=== PATIENT | female | born 1935 | race Caucasian/White ===

== ENCOUNTER → 2016-06-03 | Outpatient (CLI) | payer OTHER ==
[~2016-06-03] MED LIST: ASPI81TA28 PO; CALC-338 PO; CMD3 PO; METO25TA56 PO; MULT-223 PO; POLYSOL4 OP; SIMV-151 PO; TZCSR180 PO
--- NOTE | 2016-06-03 14:36 | MAMMOGRAPHY REPORT ---
BILATERAL DIGITAL SCREENING MAMMOGRAM WITH CAD: 06/03/2016 CLINICAL HISTORY: Routine screening. Patient has no complaints. TECHNIQUE: Current study was also evaluated with a Computer Aided Detection (CAD) system. Bilatera l CC and MLO views were obtained. COMPARISON: Comparison is made to exams dated: 05/27/2015 mammogram, 05/24/2014 mammogram, 05/23/2013 mammogram, 05/18/2012 mammogram, 01/21/2011 mammogram, and 01/20/2010 mammogram - [facility]. BREAST COMPOSITION: The tissue of both breasts is heterogeneously dense, which may obscure small ma sses. FINDINGS: No suspicious masses, calcifications, or areas of architectural distortion are noted in e ither breast. There has been no significant interval change compared to prior exams. Scattered bilat eral benign-appearing calcifications are not significantly changed. Note that the left MLO view is suboptimal as the patient could not be optimally positioned due to her pacemaker. IMPRESSION: ACR BI-RADS CATEGORY 2: BENIGN There is no mammographic evidence of malignancy. A 1 year screening mammogram is recommended. The p atient will receive written notification of the results. Approximately 10% of breast cancers are not detected with mammography. A negative mammographic repor t should not delay biopsy if a clinically suggestive mass is present. Tenisha Meneses M.D. /:06/03/2016 10:44:26 Network Relations Consultant: Ida Dickerson, [facility] letter sent: Normal 1/2 BI-RADS Code: ACR BI-RADS Category 2: Benign
== END | disposition home or self-care (01) ==
LOC: C.MAMM 09:51
PROVIDERS: ATTEND Family Medicine
DX: Z12.31 Encounter for screening mammogram for malignant neoplasm of breast (principal)

== ENCOUNTER → 2016-06-29 | Outpatient (CLI) | payer OTHER ==
[2016-06-29 13:16] LABS: BASO % 0.3 %; BASO ABS # 0.02 K/uL (0-0.2); COMPLETE YES; EOS % 4.9 %; HEMATOCRIT 41.2 % (37-47); IG% 0.3 %; LYMPH ABS # 2.07 K/uL (1.2-3.4); MEAN CELL VOLUME 96.7 fL (80-100); MEAN CORPUSCULAR HEMOGLOBIN 33.1 pg (25-34); MEAN CORPUSCULAR HGB CONC 34.2 g/dl (32-36); MEAN PLATELET VOLUME 11.6 fL (7.4-10.4); MONO % 9.5 %; PLATELET COUNT 167 K/uL (130-400); RED BLOOD COUNT 4.26 M/uL (4.2-5.4); WHITE BLOOD COUNT 7.38 K/uL (4.8-10.8)
[2016-06-29 14:01] LABS: ALT/SGPT 30 U/L (12-78); AST/SGOT 32 U/L (15-37); BLOOD UREA NITROGEN 18 mg/dl (7-18); BUN/CREATININE RATIO 23.6 (10-20); CALCIUM 9.4 mg/dl (8.5-10.1); CARBON DIOXIDE 32 mmol/L (21-32); CHLORIDE 102 mmol/L (98-107); CHOLESTEROL 155 mg/dl (0-200); CREATININE 0.76 mg/dl (0.60-1.20); GLUCOSE 105 mg/dl (70-99); POTASSIUM 4.1 mmol/L (3.5-5.1); SODIUM 140 mmol/L (136-145)
[2016-06-29 14:12] LABS: ALB/GLOB RATIO 1.3 (0.9-2); ALKALINE PHOSPHATASE 96 U/L (45-117); CHOLESTEROL/HDL RATIO 2.5; HDL CHOLESTEROL 61 mg/dl; LDL CHOLESTEROL CALCULATED 72 mg/dl; TRIGLYCERIDES 110 mg/dl (0-150); VERY LOW DENSITY LIPOPROT CALC 22 mg/dl
== END | disposition home or self-care (01) ==
LOC: C.LABMFLN 13:54
PROVIDERS: ATTEND Family Medicine
DX: I48.92 Unspecified atrial flutter (principal); E78.5 Hyperlipidemia, unspecified

== ENCOUNTER → 2017-06-08 | Outpatient (CLI) | payer OTHER ==
--- NOTE | 2017-06-09 15:44 | MAMMOGRAPHY REPORT ---
BILATERAL DIGITAL SCREENING MAMMOGRAM TOMOSYNTHESIS WITH CAD: 06/08/2017 CLINICAL HISTORY: Routine screening. Patient has no complaints. TECHNIQUE: Breast tomosynthesis in addition to standard 2D mammography was performed. Current study was also evaluated with a Computer Aided Detection (CAD) system. COMPARISON: Comparison is made to exams dated: 06/03/2016 mammogram, 05/27/2015 mammogram, 05/24/2014 m ammogram, 05/23/2013 mammogram, 05/18/2012 mammogram, and 01/21/2011 mammogram - [facility]. BREAST COMPOSITION: The tissue of both breasts is heterogeneously dense, which may obscure small mas ses. FINDINGS: There are diffuse bilateral benign coarse calcifications and moderate vascular calcificatio ns in the breasts. Stable asymmetry in the inferior anterior left breast on the MLO view. No new olivares spicious mass, architectural distortion or cluster of microcalcifications is seen. IMPRESSION: ACR BI-RADS CATEGORY 1: NEGATIVE There is no mammographic evidence of malignancy. A 1 year screening mammogram is recommended. The pa tient will receive written notification of the results. Approximately 10% of breast cancers are not detected with mammography. A negative mammographic report should not delay biopsy if a clinically suggestive mass is present. Elvi Chandler M.D. ay/:06/08/2017 16:42:42 Missionary Coordinator: Ida Dickerson, [facility] letter sent: Normal 1/2 BI-RADS Code: ACR BI-RADS Category 1: Negative
== END | disposition home or self-care (01) ==
LOC: C.MAMM 12:01
PROVIDERS: ATTEND Family Medicine
DX: Z12.31 Encounter for screening mammogram for malignant neoplasm of breast (principal)

== ENCOUNTER 2022-10-03 15:17 | Inpatient (IN) ==
[~2022-10-03 15:17] MED LIST changes: -ASPI81TA28 PO; -CALC-338 PO; -CMD3 PO; +LACTATED RINGER'S 1,000 ML IV SCH; -METO25TA56 PO; -MULT-223 PO; -POLYSOL4 OP; +SCOPOLAMINE 1 MG TDSY TD SCH; -SIMV-151 PO; -TZCSR180 PO
[2022-10-03] MEDS ORDERED: ONDANSETRON INJ 2 MG/ML 2 ML VIAL IV STA (15:35)
[2022-10-03] MEDS ORDERED: fentaNYL citrate PF 100 MCG/2 ML VIAL IV PRN (15:35)
[2022-10-03] MEDS ORDERED: SODIUM CHLORIDE 0.9% 500 ML IV STA (15:35)
[2022-10-03] MEDS ORDERED: CHECK SCOPOLAMINE PATCH PLACEMENT SCH (16:00)
[2022-10-03 16:20] LABS: Basophils # (auto) 0.02 K/uL (0.00-0.20); Basophils % (auto) 0.1 %; Eosinophils # (auto) 0.01 K/uL (0.00-0.50); Eosinophils % (auto) 0.1 %; Hemoglobin 12.8 g/dl (12.0-16.0); Immature Granulocytes # (auto) 0.12 K/uL (0.01-0.20); Immature Granulocytes % (auto) 0.8 %; Lymphocytes # (auto) 1.36 K/uL (1.20-3.40); Lymphocytes % (auto) 9.4 %; Mean Corpuscular Hemoglobin 32.6 pg (25.0-34.0); Mean Corpuscular Hgb Conc 34.6 g/dL (32.0-36.0); Mean Corpuscular Volume 94.1 fL (80.0-100.0); Mean Platelet Volume 10.9 fL (9.4-12.4); Monocytes # (auto) 0.89 K/uL (0.11-0.59); Monocytes % (auto) 6.2 %; Neutrophils % (auto) 83.4 %; Platelet Count 173 K/uL (130-400); RDW Coefficient of Variation 12.3 % (11.5-14.5); RDW Standard Deviation 42.6 fL (36.4-46.3); Red Blood Count 3.93 M/uL (4.20-5.40)
--- NOTE | 2022-10-03 16:24 | Emergency Department Note ---
Impression & Plan Closed fracture of left hip, Contusion of elbow, left, Head injury ED Provider Note NAME: KIRT HERRERA AGE: 87 SEX: F : 1935 ARRIVES VIA: Ambulance INFORMANT: Patient, EMS ED PROVIDER(S): Shorty Prabhakar DO CHIEF COMPLAINT: Injury HPI: The patient is an 87-year-old female who presented to the emergency department for an evaluation after a fall. The patient fell striking her left side. She injured her left hip as well as her left elbow. She has no pain in her elbow or her chest. She denies having any headache but did strike her head. She does take blood thinners. She was unable to stand and called 911. She arrived via ambulance. The patient did not receive any pain medication prior to arrival. The patient denies having loss of consciousness or chest pain. ROS: See above HPI for pertinent positives & negatives. A total of 10 systems reviewed and were otherwise negative. PAST MEDICAL HISTORY: See Below PAST SURGICAL HISTORY: See Below FAMILY HISTORY: See Below SOCIAL HISTORY: See Below HOME MEDICATIONS: See Below ALLERGIES: See Below VITALS: See Below PHYSICAL EXAMINATION: GENERAL: The patient is awake and alert. The patient is anxious and uncomfortable y EYES: The conjunctivae are clear. The pupils are round and reactive. EARS, NOSE, MOUTH AND THROAT: The nose is without any evidence of any deformity. NECK: The neck is nontender and supple. RESPIRATORY: Normal respiratory effort is noted there is no evidence of wheezing rhonchi or rales CARDIOVASCULAR: Regular rate and rhythm noted there no murmurs rubs or gallops normal S1 normal S2. GASTROINTESTINAL: The abdomen is soft. Abdomen is nontender. BACK: No midline tenderness or or step-off noted range of motion in flexion extension as well as rotation no signs of muscle spasm noted MUSCULOSKELETAL/EXTREMITIES: There is external rotation as well as shortening of the left hip. Pulses are symmetric in both feet. There is an abrasion to the left elbow but no pain with range of motion testing. SKIN: There is no obvious evidence of any rash. There are no petechiae, pallor or cyanosis noted. NEUROLOGIC: Patient is awake alert and oriented x3 MEDICAL DECISION MAKING: The patient is an 87-year-old female who presented to the emergency department after a fall. The patient fell and struck the left side of her body injuring her left hip and her left elbow. I discussed the patient's laboratory and radiographic studies with her. Ultimately the patient was found to have a left hip fracture. The patient was treated with pain medication emergency department. I discussed patient's laboratory and radiographic studies with the on-call orthopedic physician. I also discussed this case with the on-call [facility] hospitalist. They have agreed to evaluate the patient in the emergency department for further management and disposition. Triage Nursing notes reviewed. Prior medical records reviewed Vital Signs: reviewed and remarkable for no significant abnormalities Differential diagnosis: Fracture, subluxation, dislocation, contusion, ligamentous injury, neurovas cular, compartment syndrome, rhabdomyolysis, as well as other pathologies. ER treatment provided: See below Diagnostics interpreted by me: ECG: EKG was obtained in the emergency department. My interpretation is atrial paced rhythm at [address] segment abnormalities were noted. Some ventricular paced beats were noted. This was compared to a tracing from March 06, 2015. Atrial flutter has been replaced with pacemaker rhythm. Cardiac Monitoring: An order was placed for continuous cardiac monitoring. The monitor shows a rate of 82 bpm with paced rhythm. Laboratory studies: As stated above and show below. Imaging studies: See below. Radiographic imaging was reviewed by myself Consultation(s): I discussed this case with Dr. Rowe who is on-call for orthopedics. I discussed this case with Dr Hwang. Past Med/Surg History Medical History Atrial fibrillation Atrial flutter, paroxysmal Bilateral hearing loss CAD (coronary artery disease) Colon polyps Diverticulosis Hyperlipidemia Mitral valve disorder Need for SBE (subacute bacterial endocarditis) prophylaxis SSS (sick sinus syndrome) Surgical History Cardiac pacemaker in situ H/O colonoscopy H/O mitral valve replacement S/P tonsillectomy S/P tubal ligation Family History Sister Alzheimer disease Father Heart disease Social History Smoking Status: Never smoker Hx Alcohol Use: No Hx Substance Use: No Preferred Language: Yakut marital status: Current Living Situation: Spouse current occupational status: retired Feels Safe at Home: Yes Allergies Allergies Allergy/AdvReac Type Severity Reaction Status Date / Time No Known Allergies Allergy Verified 09/21/22 12:04 Home Meds Home Medications Medication Instructions Recorded Confirmed prochlorperazine maleate 10 mg 10 mg PO Q6H PRN nausea/vomiting 06/09/21 10/03/22 tablet (Compazine) vitamins A,C,A-sxpj-lagwpb 2,148 1 tab PO BID 09/21/22 10/03/22 mcg-113 mg-45 mg-17.4 mg tablet (PreserVision AREDS) Previous Rx's Medication Instructions Recorded aspirin 81 mg tablet,delayed 81 mg PO DAILY #90 tabs 10/31/18 release (Adult Low Dose Aspirin) calcium phosphate 600 mg-vit D3 1 tab PO BID #180 tabs 10/31/18 500 unit-magnesium oxide 50 mg tablet (Posture-D (with magnesium)) multivit with min-folic 1 tab PO DAILY #30 tabs 10/31/18 acid-lutein 400 mcg-250 mcg chewable tablet (Centrum Silver) amoxicillin 500 mg tablet 2,000 mg PO .COMPLEX #4 tabs 11/28/20 diltiazem HCl 360 mg 360 mg PO DAILY #90 caps 11/25/21 capsule,extended release 24 hr simvastatin 20 mg tablet 20 mg PO QPM #90 tabs 02/02/22 apixaban 2.5 mg tablet (Eliquis) 2.5 mg PO BID #180 tabs 02/23/22 metoprolol succinate 25 mg 75 mg PO DAILY #270 tabs 08/07/22 tablet,extended release 24 hr Results & Data (ED) Vital Signs Vital Signs - 24 hr 10/03/22 15:28 10/03/22 15:28 10/03/22 15:31 Temperature 37 C Temperature Source Oral Oral Pulse Rate 85 79 Pulse Rate from SpO2 Sensor Respiratory Rate 15 Blood Pressure 147/82 H Blood Pressure Mean 103 Pulse Oximetry 95 Oxygen Delivery Method Room Air Sepsis Recent Fever Within 48 Hours No Sepsis New/Unexplained Change in Mental Status N/A Sepsis Action Taken by Nursing No Action Required 10/03/22 15:41 10/03/22 15:29 10/03/22 15:30 Temperature Temperature Source Pulse Rate 78 Pulse Rate from SpO2 Sensor 78 Respiratory Rate 24 Blood Pressure 145/66 H Blood Pressure Mean 92 Pulse Oximetry 95 95 Oxygen Delivery Method Room Air Sepsis Recent Fever Within 48 Hours Sepsis New/Unexplained Change in Mental Status Sepsis Action Taken by Nursing 10/03/22 15:30 10/03/22 15:40 10/03/22 15:50 Temperature Temperature Source Pulse Rate 74 70 76 Pulse Rate from SpO2 Sensor 74 67 82 Respiratory Rate 15 17 18 Blood Pressure Blood Pressure Mean Pulse Oximetry 94 95 92 Oxygen Delivery Method Sepsis Recent Fever Within 48 Hours Sepsis New/Unexplained Change in Mental Status Sepsis Action Taken by Nursing 10/03/22 16:00 10/03/22 16:00 10/03/22 16:10 Temperature Temperature Source Pulse Rate 79 Pulse Rate from SpO2 Sensor 80 78 Respiratory Rate 20 Blood Pressure 143/61 H Blood Pressure Mean 88 Pulse Oximetry 94 93 Oxygen Delivery Method Sepsis Recent Fever Within 48 Hours Sepsis New/Unexplained Change in Mental Status Sepsis Action Taken by Nursing 10/03/22 16:57 10/03/22 16:59 10/03/22 16:59 Temperature Temperature Source Pulse Rate 82 80 Pulse Rate from SpO2 Sensor Respiratory Rate 15 15 Blood Pressure 156/68 H Blood Pressure Mean 97 Pulse Oximetry Oxygen Delivery Method Sepsis Recent Fever Within 48 Hours Sepsis New/Unexplained Change in Mental Status Sepsis Action Taken by Nursing 10/03/22 17:00 10/03/22 17:00 10/03/22 17:10 Temperature Temperature Source Pulse Rate 78 78 Pulse Rate from SpO2 Sensor Respiratory Rate 19 17 Blood Pressure 142/65 H Blood Pressure Mean 90 Pulse Oximetry Oxygen Delivery Method Sepsis Recent Fever Within 48 Hours Sepsis New/Unexplained Change in Mental Status Sepsis Action Taken by Nursing 10/03/22 17:20 10/03/22 17:30 10/03/22 17:30 Temperature Temperature Source Pulse Rate 78 82 Pulse Rate from SpO2 Sensor Respiratory Rate 16 21 Blood Pressure 142/71 H Blood Pressure Mean 94 Pulse Oximetry Oxygen Delivery Method Sepsis Recent Fever Within 48 Hours Sepsis New/Unexplained Change in Mental Status Sepsis Action Taken by Nursing 10/03/22 17:40 10/03/22 17:50 10/03/22 18:00 Temperature Temperature Source Pulse Rate 78 78 Pulse Rate from SpO2 Sensor Respiratory Rate 15 15 Blood Pressure 138/72 Blood Pressure Mean 94 Pulse Oximetry Oxygen Delivery Method Sepsis Recent Fever Within 48 Hours Sepsis New/Unexplained Change in Mental Status Sepsis Action Taken by Nursing 10/03/22 18:00 10/03/22 18:10 Temperature Temperature Source Pulse Rate 81 77 Pulse Rate from SpO2 Sensor Respiratory Rate 15 18 Blood Pressure Blood Pressure Mean Pulse Oximetry Oxygen Delivery Method Sepsis Recent Fever Within 48 Hours Sepsis New/Unexplained Change in Mental Status Sepsis Action Taken by [facility] Medications Current Medication List: was personally reviewed by me Laboratory Data Attestation: I reviewed the patient's lab results. 10/03/22 15:50 10/03/22 15:50 Lab Results 10/03/22 10/03/22 10/03/22 Range/Units 15:50 15:50 15:50 WBC 14.40 H (4.8-10.8) K/ul RBC 3.93 L (4.20-5.40) M/uL Hgb 12.8 (12.0-16.0) g/dl Hct 37.0 (37.0-47.0) % MCV 94.1 (80.0-100.0) fL MCH 32.6 (25.0-34.0) pg MCHC 34.6 (32.0-36.0) g/dL RDW Std Deviation 42.6 (36.4-46.3) fL RDW Coeff of Li 12.3 (11.5-14.5) % Plt Count 173 (130-400) K/uL MPV 10.9 (9.4-12.4) fL Immature Gran % (Auto) 0.8 % Neut % (Auto) 83.4 % Lymph % (Auto) 9.4 % [place] % (Auto) 6.2 % Eos % (Auto) 0.1 % Baso % (Auto) 0.1 % Neut # (Auto) 12.00 H (1.40-6.50) K/uL Lymph # (Auto) 1.36 (1.20-3.40) K/uL [place] # (Auto) 0.89 H (0.11-0.59) K/uL Eos # (Auto) 0.01 (0.00-0.50) K/uL Baso # (Auto) 0.02 (0.00-0.20) K/uL Immature Gran # (Auto) 0.12 (0.01-0.20) K/uL PT 11.4 (9.0-12.0) Seconds INR 1.0 (0.9-1.1) APTT 24.8 (21.0-31.0) Seconds PTT Ratio 0.9 Sodium 134 L (136-145) mmol/L Potassium 4.2 (3.5-5.1) mmol/L Chloride 98 (98-107) mmol/L Carbon Dioxide 28 (21-32) mmol/L Anion Gap 8 (3-11) BUN 16 (6-23) mg/dl Creatinine 0.78 (0.6-1.2) mg/dl Est Cr Clr Drug Dosing Not Reportable Est GFR ( Amer) 78.1 ml/min Est GFR (Non-Af Amer) 67.4 ml/min BUN/Creatinine Ratio 20.5 H (10-20) Glucose 116 H (70-99(Fasting)) mg/dl Calcium 9.7 (8.6-10.3) mg/dl Total Bilirubin 0.7 (0.2-1.0) mg/dl AST 38 (13-39) U/L ALT 20 (7-52) U/L Alkaline Phosphatase 106 H (34-104) U/L Troponin I High Sens 11.1 (0-14) pg/ml Total Protein 6.5 (6.0-8.3) gm/dl Albumin 4.1 (3.4-5.0) gm/dl Globulin 2.4 L (2.5-4.0) gm/dl Albumin/Globulin Ratio 1.7 (0.9-2) Lipase 52 (11-82) U/L Administered Medications Lactated Ringer's (Lr) 1,000 mls @ 100 mls/hr IV .Q10H KASH Stop: 11/02/22 20:46 Last Admin: 10/03/22 21:09 Dose: 100 mls/hr Documented By: AMBROCIO Discontinued Medications Fentanyl Citrate (Fentanyl Citrate Pf 100 Mcg/2 Ml Vial) 50 mcg IV Q15M PRN PRN Reason: Pain Stop: 10/17/22 15:34 Last Admin: 10/03/22 17:18 Dose: 50 mcg Documented By: GARY Sodium Chloride (Nss) 500 mls @ 999 mls/hr IV .Q31M STA Stop: 10/03/22 16:05 Last Infusion: 10/03/22 17:55 Dose: 0 mls/hr Documented By: Admin: 10/03/22 16:59 Dose: 999 mls/hr Documented By: GARY Ondansetron HCl (Ondansetron Inj 2 Mg/Ml 2 Ml Vial) 4 mg IV NOW STA Stop: 10/03/22 15:36 Last Admin: 10/03/22 16:59 Dose: Not Given Documented By: GARY Imaging Data Attestation: I personally reviewed and interpreted this imaging study as follows: My Impression: CT of the brain was obtained in the emergency department. My interpretation is no intracranial hemorrhage or mass effect, final report below. 1 view chest x-ray was obtained in the emergency department. My interpretation is no free air or definite infiltrate, final report below. X-ray of the pelvis and left hip was obtained in the emergency department. My interpretation is left hip fracture. Final report below Radiologist's Impression: Cervical Spine CT 10/03/22 15:35 CT OF THE CERVICAL SPINE WITHOUT CONTRAST CLINICAL HISTORY: fall COMPARISON STUDY: No previous studies for comparison. TECHNIQUE: Helical axial images of the cervical spine were obtained without IV contrast. Sagittal and coronal reconstructions were viewed. Automated exposure control was utilized for the study. A dose lowering technique was utilized adhering to the principles of ALARA. FINDINGS: Alignment of the cervical spine is anatomic. Vertebral body heights are maintained. No acute cervical spine fracture or subluxation is present. There is no prevertebral edema. Facet joints are intact. Severe multilevel facet arthrosis and moderate degenerative disc disease is noted. There is biapical scarring within the lungs. IMPRESSION: No acute cervical spine fracture or subluxation. ACT 112: Negative or not required by law. Electronically signed by: Rodrigue Perez M.D. 10/03/2022 5:10 PM Chest X-Ray 10/03/22 15:35 XR chest 1V not portable CLINICAL HISTORY: Chest pain, nonspecific COMPARISON STUDY: Chest radiograph March 05, 2015. FINDINGS: There are median sternotomy wires and a left subclavian pacer. Cardiomegaly is unchanged. There is mild interstitial thickening. This may be chronic. There is no evidence for overt pulmonary edema. There is no pneumothorax or pleural effusion. No consolidation to suggest pneumonia. IMPRESSION: Cardiomegaly. Mild interstitial thickening. This is likely chronic however mild interstitial pulmonary edema could appear similar. ACT 112: Negative or not required by law. Electronically signed by: Rodrigue Perez M.D. 10/03/2022 5:[address] 10/03/22 15:35 CT OF THE HEAD WITHOUT CONTRAST CLINICAL HISTORY: fall COMPARISON STUDY: Head CT May 15, 2009. MRI of the brain June 07, 2009. CT DOSE: 1079.10 mGy.cm TECHNIQUE: Helical axial images of the head were obtained without IV contrast. Automated exposure control was utilized for the study. A dose lowering technique was utilized adhering to the principles of ALARA. FINDINGS: No acute intracranial hemorrhage, midline shift or mass effect is present. The ventricular system is stable. White matter hypodensity suggests small vessel disease. The basal cisterns are patent. No extra-axial collections are present. There are no findings to suggest acute dural sinus thrombosis or acute territorial infarct. No acute calvarial fracture. IMPRESSION: 1. No acute intracranial findings. 2. No acute calvarial fracture. ACT 112: Negative or not required by law. Electronically signed by: Rodrigue Perez M.D. 10/03/2022 5:02 PM Hip/Pelvis X-Ray 10/03/22 15:35 XR hip LT 2V w pelvis CLINICAL HISTORY: fall COMPARISON: CT of the abdomen and pelvis November 21, 2018. FINDINGS: There is an acute displaced left femoral neck fracture. Fracture is displaced approximately 1.2 cm. No additional acute fractures are identified on this exam. There is extensive vascular calcification. Moderate amount of stool within the rectum. Sacroiliac joints and symphysis pubis are intact. IMPRESSION: Acute displaced left femoral neck fracture. ACT 112: Negative or not required by law. Electronically signed by: Rodrigue Perez M.D. 10/03/2022 5:13 PM Discharge Plan Visit Data Chief Complaint: Fall ED Provider: Shorty Prabhakar Discharge Problem: Closed fracture of left hip, Contusion of elbow, left, Head injury Patient Disposition: Admitted As Inpatient Discharge Instructions Interventions: ED Discharge Assessment Last Done: 10/03/22 20:16
[2022-10-03 16:33] LABS: Alanine Aminotransferase 20 U/L (7-52); Albumin Globulin Ratio 1.7 (0.9-2); Albumin Level 4.1 gm/dl (3.4-5.0); Alkaline Phosphatase 106 U/L (34-104); Anion Gap 8 (3-11); Aspartate Aminotransferase 38 U/L (13-39); BUN Creatinine Ratio 20.5 (10-20); Bilirubin,Total 0.7 mg/dl (0.2-1.0); Blood Urea Nitrogen 16 mg/dl (6-23); Calcium 9.7 mg/dl (8.6-10.3); Carbon Dioxide 28 mmol/L (21-32); Chloride 98 mmol/L (98-107); Est GFR (African American) 78.1 ml/min; Est GFR (Non-African American) 67.4 ml/min; Globulin 2.4 gm/dl (2.5-4.0); Glucose 116 mg/dl (70-99(Fasting)); Lipase 52 U/L (11-82); Potassium 4.2 mmol/L (3.5-5.1); Sodium 134 mmol/L (136-145); Total Protein 6.5 gm/dl (6.0-8.3)
[2022-10-03 16:39] LABS: Troponin I High Sensitivity 11.1 pg/ml (0-14)
[2022-10-03 16:48] LABS: Partial Thromboplastin Ratio 0.9; Partial Thromboplastin Time 24.8 Seconds (21.0-31.0); Prothrombin Time 11.4 Seconds (9.0-12.0)
--- NOTE | 2022-10-03 17:03 | CT Scan Report ---
CT OF THE HEAD WITHOUT CONTRAST CLINICAL HISTORY: fall COMPARISON STUDY: Head CT May 15, 2009. MRI of the brain June 07, 2009. CT DOSE: 1079.10 mGy.cm TECHNIQUE: Helical axial images of the head were obtained without IV contrast. Automated exposure con trol was utilized for the study. A dose lowering technique was utilized adhering to the principles o f ALARA. FINDINGS: No acute intracranial hemorrhage, midline shift or mass effect is present. The ventricular system is stable. White matter hypodensity suggests small vessel disease. The basal cisterns are andrew nt. No extra-axial collections are present. There are no findings to suggest acute dural sinus thromb osis or acute territorial infarct. No acute calvarial fracture. IMPRESSION: 1. No acute intracranial findings. 2. No acute calvarial fracture. ACT 112: Negative or not required by law. Electronically signed by: Rodrigue Perez M.D. 10/03/2022 5:02 PM
--- NOTE | 2022-10-03 17:11 | CT Scan Report ---
CT OF THE CERVICAL SPINE WITHOUT CONTRAST CLINICAL HISTORY: fall COMPARISON STUDY: No previous studies for comparison. TECHNIQUE: Helical axial images of the cervical spine were obtained without IV contrast. Sagittal a nd coronal reconstructions were viewed. Automated exposure control was utilized for the study. A do se lowering technique was utilized adhering to the principles of ALARA. FINDINGS: Alignment of the cervical spine is anatomic. Vertebral body heights are maintained. No acut e cervical spine fracture or subluxation is present. There is no prevertebral edema. Facet joints are intact. Severe multilevel facet arthrosis and moderate degenerative disc disease is noted. There is biapical scarring within the lungs. IMPRESSION: No acute cervical spine fracture or subluxation. ACT 112: Negative or not required by law. Electronically signed by: Rodrigue Perez M.D. 10/03/2022 5:10 PM
--- NOTE | 2022-10-03 17:14 | XRay Report ---
XR chest 1V not portable CLINICAL HISTORY: Chest pain, nonspecific COMPARISON STUDY: Chest radiograph March 05, 2015. FINDINGS: There are median sternotomy wires and a left subclavian pacer. Cardiomegaly is unchanged. T here is mild interstitial thickening. This may be chronic. There is no evidence for overt pulmonary e kerri. There is no pneumothorax or pleural effusion. No consolidation to suggest pneumonia. IMPRESSION: Cardiomegaly. Mild interstitial thickening. This is likely chronic however mild interstit ial pulmonary edema could appear similar. ACT 112: Negative or not required by law. Electronically signed by: Rodrigue Perez M.D. 10/03/2022 5:12 PM
--- NOTE | 2022-10-03 17:15 | XRay Report ---
XR hip LT 2V w pelvis CLINICAL HISTORY: fall COMPARISON: CT of the abdomen and pelvis November 21, 2018. FINDINGS: There is an acute displaced left femoral neck fracture. Fracture is displaced approximatel y 1.2 cm. No additional acute fractures are identified on this exam. There is extensive vascular calc ification. Moderate amount of stool within the rectum. Sacroiliac joints and symphysis pubis are inta ct. IMPRESSION: Acute displaced left femoral neck fracture. ACT 112: Negative or not required by law. Electronically signed by: Rodrigue Perez M.D. 10/03/2022 5:13 PM
--- NOTE | 2022-10-03 18:18 | History & Physical Report ---
Date of Service October 03, 2022 Assessment & Plan (1) Closed left hip fracture: Plan: Last took Eliquis 10/03 8 @ 9am. Discussed with Dr Richmond and recommended KCentra prior to surgery if performed tomorrow - order placed Otherwise medically optimized for surgery - no need for cardiac clearance given stability Pain control with acetaminophen 1st line, morphine 2nd line Consult orthopedics (2) Atrial fibrillation: Plan: Hold Eliquis for operation Continue rate control with diltiazem and metoprolol (3) CAD (coronary artery disease): Plan: Continue ASA, Eliquis post operatively Continue metoprolol and simvastatin perioperatively (4) Cardiac pacemaker in situ: (5) Hyperlipidemia: Plan: Continue simvastatin Plan VTE Prophylaxis - Eliquis on hold for operation, restart post operatively when ok by othopedics Diet - regular, NPO after midnight Disposition - admit to med/surg Admission and Anticipated Discharge Date Admission Date: October 04, 2022 History of Present Illness Chief Complaint: Left hip pain, fall Primary Care Provider: DO Tenisha Mitchell Ayan is an 87 year old female who presents to the ER with a fall and subsequent left hip pain. She reports turning around in her kitchen and thinks she turned too fast and lost balance and fell. Hit left leg on cupboard, head and elbow. Having significant left groin pain since the fall and unable to walk. Hip fracture found on XRs in the ER. No known osteoporosis but lso no recent DEXA scans. 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 Doing well since then - no shortness of breath or chest pain on walking. Compliant with medications and just saw her seamer in July. Very active walks up and down stairs without symptoms. No history of heart failure. 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 She last took her Eliquis this morning around 9am. Allergies Allergy/AdvReac Type Severity Reaction Status Date / Time No Known Allergies Allergy Verified 09/21/22 12:04 Home Medications Medication Instructions Recorded Confirmed Type aspirin 81 mg tablet,delayed 81 mg PO DAILY #90 tabs 10/31/18 10/03/22 Rx release (Adult Low Dose Aspirin) calcium phosphate 600 mg-vit D3 1 tab PO BID #180 tabs 10/31/18 10/03/22 Rx 500 unit-magnesium oxide 50 mg tablet (Posture-D (with magnesium)) multivit with min-folic 1 tab PO DAILY #30 tabs 10/31/18 10/03/22 Rx acid-lutein 400 mcg-250 mcg chewable tablet (Centrum Silver) amoxicillin 500 mg tablet 2,000 mg PO .COMPLEX #4 tabs 11/28/20 10/03/22 Rx prochlorperazine maleate 10 mg 10 mg PO Q6H PRN nausea/vomiting 06/09/21 10/03/22 History tablet (Compazine) diltiazem HCl 360 mg 360 mg PO DAILY #90 caps 11/25/21 10/03/22 Rx capsule,extended release 24 hr simvastatin 20 mg tablet 20 mg PO QPM #90 tabs 02/02/22 10/03/22 Rx apixaban 2.5 mg tablet (Eliquis) 2.5 mg PO BID #180 tabs 02/23/22 10/03/22 Rx metoprolol succinate 25 mg 75 mg PO DAILY #270 tabs 08/07/22 10/03/22 Rx tablet,extended release 24 hr vitamins A,C,M-rdph-wjypbf 2,148 1 tab PO BID 09/21/22 10/03/22 History mcg-113 mg-45 mg-17.4 mg tablet (PreserVision AREDS) Past Med/Surg History Medical History Atrial fibrillation Atrial flutter, paroxysmal Bilateral hearing loss CAD (coronary artery disease) Colon polyps Diverticulosis Hyperlipidemia Mitral valve disorder Need for SBE (subacute bacterial endocarditis) prophylaxis SSS (sick sinus syndrome) Surgical History Cardiac pacemaker in situ H/O colonoscopy H/O mitral valve replacement S/P tonsillectomy S/P tubal ligation Family History Sister Alzheimer disease Father Heart disease Social History Smoking Status: Never smoker Second Hand Exposure: No; Do You Dip or Chew Tobacco: No; Tobacco Cessation Education Requested by Patient: No Hx Alcohol Use: No Hx Substance Use: No Preferred Language: German Communication Ability: Effective Photostat Operator Required: No Beliefs That Will Affect Care: None marital status: Current Living Situation: Spouse current occupational status: retired Feels Safe at Home: Yes Safety Concerns: Feels Safe At This Time Assistive Devices: None Review of Systems Review of Systems: All systems reviewed & are unremarkable except as noted in HPI & below Physical Exam Constitutional: WD/WN, vitals as above Eyes: PERRL, conjunctivae normal, anicteric sclerae ENMT: external ear and nose normal, oropharynx normal Neck: trachea midline, no thyromegaly Respiratory: normal respiratory effort, lungs clear to auscultation Cardiovascular: Rate/Rhythm: regular rate and + irregularly irregular Heart Sounds: + murmur (systolic in apex) Extremities: normal capillary refill; no calf tenderness and no pedal edema Gastrointestinal (Abdomen): normal bowel sounds, soft, nontender, no hepatosplenomegaly Musculoskeletal: Shortened and externally rotated left leg, normal sensation and power in left ankle with palpable DP and PT pulses Skin: no rashes, warm and dry Neurologic: moves all extremities and awake; not confused Psychiatric: A+Ox3, euthymic affect Results & Data Results & Data Vital Signs (Past 12 Hours) Vital Signs Temp Pulse Resp BP Pulse Ox O2 Del Method 10/03/22 15:41 95 Room Air 10/03/22 15:31 79 10/03/22 15:28 37 C 85 15 147/82 H 95 Room Air Laboratory Results Abnormal lab results 10/03/22 10/03/22 Range/Units 15:50 15:50 WBC 14.40 H (4.8-10.8) K/ul RBC 3.93 L (4.20-5.40) M/uL Neut # (Auto) 12.00 H (1.40-6.50) K/uL [place] # (Auto) 0.89 H (0.11-0.59) K/uL Sodium 134 L (136-145) mmol/L BUN/Creatinine Ratio 20.5 H (10-20) Glucose 116 H (70-99(Fasting)) mg/dl Alkaline Phosphatase 106 H (34-104) U/L Globulin 2.4 L (2.5-4.0) gm/dl Diagnostic Findings CT OF THE HEAD WITHOUT CONTRAST CLINICAL HISTORY: fall COMPARISON STUDY: Head CT May 15, 2009. MRI of the brain June 07, 2009. CT DOSE: 1079.10 mGy.cm TECHNIQUE: Helical axial images of the head were obtained without IV contrast. Automated exposure control was utilized for the study. A dose lowering technique was utilized adhering to the principles of ALARA. FINDINGS: No acute intracranial hemorrhage, midline shift or mass effect is present. The ventricular system is stable. White matter hypodensity suggests small vessel disease. The basal cisterns are patent. No extra-axial collections are present. There are no findings to suggest acute dural sinus thrombosis or acute territorial infarct. No acute calvarial fracture. IMPRESSION: 1. No acute intracranial findings. 2. No acute calvarial fracture. XR chest 1V not portable CLINICAL HISTORY: Chest pain, nonspecific COMPARISON STUDY: Chest radiograph March 05, 2015. FINDINGS: There are median sternotomy wires and a left subclavian pacer. Cardiomegaly is unchanged. There is mild interstitial thickening. This may be chronic. There is no evidence for overt pulmonary edema. There is no pneumothorax or pleural effusion. No consolidation to suggest pneumonia. IMPRESSION: Cardiomegaly. Mild interstitial thickening. This is likely chronic however mild interstitial pulmonary edema could appear similar. Medications Administered ER Medications Given: Fentanyl 50 mcg IV Normal saline 500ml bolus Ondansetron 4mg IV ECG Rate (beats per minute): 74 Rhythm: other (atrial paced) Findings: + LAFB and + RBBB Comparison ECG Date: from (Mar 06, 2015) Change: the following changes noted (now in paced rhythm from atrial flutter) Code Status & VTE Plan Code Status Full - although she would like to discuss this more with her and might change her mind VTE Prophylaxis Plan VTE Prophylaxis will be ordered: No PG Care Time/CCT Total # of Minutes Spent Total Time Spent with Patient: Total time spent is greater than 50% in coordination of care (as documented) at patient's floor/unit and/or counseling patient: Coding Level of Care Code 89092 INT INP/OBS CARE 2/55MIN Diagnoses Closed left hip fracture S72.002A Atrial fibrillation I48.0 Atrial fibrillation type: paroxysmal CAD (coronary artery disease) I25.10 Associated angina: without angina Coronary Disease-Associated Artery/Lesion type: [place] artery [place] vs. transplanted heart: [place] heart Cardiac pacemaker in situ Z95.0 Hyperlipidemia E78.5 (2) Atrial fibrillation Atrial fibrillation type: paroxysmal Qualified Code(s): I48.0 - Paroxysmal atrial fibrillation (3) CAD (coronary artery disease) Associated angina: without angina Coronary Disease-Associated Artery/Lesion type: [place] artery [place] vs. transplanted heart: [place] heart Qualified Code(s): I25.10 - Atherosclerotic heart disease of [place] coronary artery without angina pectoris
[2022-10-03] MEDS ORDERED: MoRPHine SULFATE 2 MG/ML CARP IV PRN ×2 (20:47→20:49)
[2022-10-03] MEDS ORDERED: ONDANSETRON INJ 2 MG/ML 2 ML VIAL IV PRN (20:47)
[2022-10-03] MEDS ORDERED: bisacodyL 10 MG SUPP PR PRN (20:47)
[2022-10-03] MEDS ORDERED: NALOXONE HCL 0.4 MG/1 ML VIAL/CARP IV PRN (20:47)
[2022-10-03] MEDS ORDERED: MAGNESIUM HYDROXIDE SUSP 30 ML UDC PO PRN (20:47)
[2022-10-03] MEDS: LACTATED RINGER'S 1,000 ML IV SCH (21:09)
[2022-10-03] MEDS: SIMVASTATIN 20 MG TAB PO SCH (21:52)
[2022-10-03] MEDS: ACETAMINOPHEN 325 MG TAB PO PRN (23:09)
[2022-10-04 00:33] LABS: Appearance Urine Cloudy (Clear); Bacteria Urine Automated Negative (Negative); Bilirubin Urine Negative (Negative); Blood Urine Negative (Negative); Color Urine Yellow; Epithelial Cell Urine Auto 0-5 /lpf (0-5); Glucose Urine UA Negative (Negative); Ketones Urine 2+ (Negative); Leukocyte Esterase Urine Negative (Negative); Nitrite Urine Negative (Negative); RBC Urine Automated 0-4 /hpf (0-4); Specific Gravity Urine 1.014 (1.000-1.030); Urobilinogen Urine Negative (Negative); WBC Urine Automated 0 /hpf (0-5); pH Urine 7.5 (4.5-7.5)
[2022-10-04 00:38] LABS: Protein Urine Trace (Negative)
[2022-10-04] MEDS ORDERED: SCOPOLAMINE 1 MG TDSY TD SCH (06:00)
[2022-10-04] MEDS ORDERED: TRANEXAMIC ACID 1,000 MG in 0.9 % SODIUM CHLORIDE 100 ML IR SCH (06:00)
[2022-10-04] MEDS ORDERED: ceFAZolin 2000MG 2,000 MG/15 ML SYR IV SCH (06:00)
[2022-10-04] MEDS ORDERED: KCENTRA (500unit vial) 2000 units IVP IV SCH (06:00)
[2022-10-04] MEDS ORDERED: LACTATED RINGER'S 1,000 ML IV SCH (06:00)
[2022-10-04] MEDS ORDERED: ROPIVACAINE 0.5% HCL/PF 150 MG, BUPIVACAINE 0.75% MPF 20 ML, EPINEPHrine 0.15 MG, Ketor... INFIL SCH (06:00)
[2022-10-04] MEDS ORDERED: TRANEXAMIC ACID / 0.7% NACL 1,000 MG/100 ML BAG IV SCH ×2 (06:00→19:15)
[2022-10-04 07:19] LABS: Basophils # (auto) 0.03 K/uL (0.00-0.20); Basophils % (auto) 0.3 %; Eosinophils # (auto) 0.18 K/uL (0.00-0.50); Eosinophils % (auto) 1.9 %; Hematocrit (blood only) 34.2 % (37.0-47.0); Hemoglobin 11.9 g/dl (12.0-16.0); Immature Granulocytes # (auto) 0.05 K/uL (0.01-0.20); Immature Granulocytes % (auto) 0.5 %; Lymphocytes # (auto) 1.12 K/uL (1.20-3.40); Mean Corpuscular Hemoglobin 32.9 pg (25.0-34.0); Mean Corpuscular Hgb Conc 34.8 g/dL (32.0-36.0); Mean Corpuscular Volume 94.5 fL (80.0-100.0); Mean Platelet Volume 10.9 fL (9.4-12.4); Monocytes # (auto) 0.93 K/uL (0.11-0.59); Neutrophils # (auto) 6.99 K/uL (1.40-6.50); Neutrophils % (auto) 75.3 %; Platelet Count 146 K/uL (130-400); RDW Coefficient of Variation 12.3 % (11.5-14.5); RDW Standard Deviation 42.5 fL (36.4-46.3); Red Blood Count 3.62 M/uL (4.20-5.40)
[2022-10-04 07:21] LABS: Fibrinogen 299 mg/dl (184-400); INR 1.1 (0.9-1.1); Partial Thromboplastin Ratio 1.1; Prothrombin Time 11.9 Seconds (9.0-12.0)
[2022-10-04 07:32] LABS: Calcium 8.4 mg/dl (8.6-10.3); Creatinine Clr Calc Pharmacy 53.5 ml/min; Est GFR (African American) 94.2 ml/min; Est GFR (Non-African American) 81.3 ml/min; Potassium 3.4 mmol/L (3.5-5.1)
[2022-10-04] MEDS ORDERED: ONDANSETRON INJ 2 MG/ML 2 ML VIAL IV PRN ×2 (07:43→13:14)
[2022-10-04] MEDS ORDERED: POTASSIUM CHLORIDE CRTAB 20 MEQ TABCR PO STA (08:07)
--- NOTE | 2022-10-04 08:09 | Hospitalist Progress Note ---
Date of Service October 04, 2022 Assessment & Plan (1) Closed left hip fracture: Plan: Fall at home Imaging w/ acute displaced left femoral neck fracture Orthopedics consulted NPO for surgery this morning IVF rate decreased to 70cc/hr given weight to prevent volume overload. K/mag replacement given her underlying afib/flutter to ensure stable. Monitor post-op Eliquis on hold (last dose AM 10/03 @ 9am) discussed w/ Dr Richmond on admission and Kcentra recommended prior to surgery (order on chart) Cohen Pain control/antiemetics prn PT/OT consults following surgery SCDs in place at present Monitor labs on repeat (2) Atrial fibrillation: Plan: Hold Eliquis for operation, Kcentra as above Continue rate control with diltiazem and metoprolol Keep K/mag replete, see above (3) CAD (coronary artery disease): Plan: Continue ASA, Eliquis post operatively Continue metoprolol and simvastatin perioperatively (4) Cardiac pacemaker in situ: (5) Hyperlipidemia: Plan: Continue simvastatin Plan VTE Prophylaxis - Eliquis on hold for operation, restart post operatively when ok by othopedics NPO for OR today with Dr Dumont Admission and Anticipated Discharge Date Admission Date: October 03, 2022 Supervising Physician Co-Signing Physician Notes The patient was not seen by me. The chart was reviewed. Case discussed with MIKIE Chandler. Agree with assessment and plan Subjective Eval this morning, awaiting surgery, not having much pain if she doesn't move. Denies CP/SOB, reports never has issues with this. Discussed surgery for today, therapy evaluations post-operatively and we will continue to monitor her course. Questions/concerns addressed at present. Physical Exam Physical Exam: General: WN/WD female resting in bed, NAD HEENT: head normocephalic, atraumatic, mmm, trachea midline Resp: CTA, diminished in the bases, no w/c, on room air CV: irregularly irregular, systolic murmur (apex), no pitting edema/calf tenderness GI: +BS, soft/NT : cohen draining clear yellow urine MSK/Neuro: LEFT leg shortened/externally rotated, NVI and pulses palpable Psych: AOx3, pleasant and cooperative Results & Data Results & Data Vital Signs (Past 12 Hours) Vital Signs Temp Pulse Pulse Resp BP BP Pulse Ox 10/04/22 07:12 36.8 C 76 18 113/78 92 10/03/22 22:01 36.8 C 81 18 128/72 96 10/03/22 20:16 82 18 132/72 95 O2 Del Method 10/04/22 07:12 Room Air 10/03/22 22:01 Room Air 10/03/22 20:16 Room Air Laboratory Results 10/04/22 10/04/22 10/04/22 Range/Units Unknown 06:30 06:30 WBC (4.8-10.8) K/ul RBC (4.20-5.40) M/uL Hgb (12.0-16.0) g/dl Hct (37.0-47.0) % MCV (80.0-100.0) fL MCH (25.0-34.0) pg MCHC (32.0-36.0) g/dL RDW Std Deviation (36.4-46.3) fL RDW Coeff of Li (11.5-14.5) % Plt Count (130-400) K/uL MPV (9.4-12.4) fL Immature Gran % (Auto) % Neut % (Auto) % Lymph % (Auto) % [place] % (Auto) % Eos % (Auto) % Baso % (Auto) % Neut # (Auto) (1.40-6.50) K/uL Lymph # (Auto) (1.20-3.40) K/uL [place] # (Auto) (0.11-0.59) K/uL Eos # (Auto) (0.00-0.50) K/uL Baso # (Auto) (0.00-0.20) K/uL Immature Gran # (Auto) (0.01-0.20) K/uL PT (9.0-12.0) Seconds INR (0.9-1.1) APTT (21.0-31.0) Seconds PTT Ratio Fibrinogen (184-400) mg/dl Heparin Anti-Xa, LM Wt (< 0.10) IU/ML Sodium 134 L (136-145) mmol/L Potassium 3.4 L (3.5-5.1) mmol/L Chloride 100 (98-107) mmol/L Carbon Dioxide 28 (21-32) mmol/L Anion Gap 6 (3-11) BUN 13 (6-23) mg/dl Creatinine 0.59 L (0.6-1.2) mg/dl Est Cr Clr Drug Dosing 53.5 Est GFR ( Amer) 94.2 ml/min Est GFR (Non-Af Amer) 81.3 ml/min BUN/Creatinine Ratio 22.0 H (10-20) Glucose 104 H (70-99(Fasting)) mg/dl Calcium 8.4 L (8.6-10.3) mg/dl Magnesium 1.7 (1.7-2.4) mg/dl Total Bilirubin (0.2-1.0) mg/dl AST (13-39) U/L ALT (7-52) U/L Alkaline Phosphatase (34-104) U/L Troponin I High Sens (0-14) pg/ml Total Protein (6.0-8.3) gm/dl Albumin (3.4-5.0) gm/dl Globulin (2.5-4.0) gm/dl Albumin/Globulin Ratio (0.9-2) Lipase (11-82) U/L Urine Color Yellow Urine Appearance Cloudy A (Clear) Urine pH 7.5 (4.5-7.5) Ur Specific [place] 1.014 (1.000-1.030) Urine Protein Trace H (Negative) Urine Glucose (UA) Negative (Negative) Urine Ketones 2+ H (Negative) Urine Blood Negative (Negative) Urine Nitrite Negative (Negative) Urine Bilirubin Negative (Negative) Urine Urobilinogen Negative (Negative) Ur Leukocyte Esterase Negative (Negative) Urine WBC (Auto) 0 (0-5) /hpf Urine RBC (Auto) 0-4 (0-4) /hpf U Hyaline Cast (Auto) 1-5 (0-5) /lpf U Epithel Cells (Auto) 0-5 (0-5) /lpf Urine Bacteria (Auto) Negative (Negative) Blood Type Antibody Screen 10/04/22 10/04/22 10/03/22 Range/Units 06:30 06:30 20:56 WBC 9.30 (4.8-10.8) K/ul RBC 3.62 L (4.20-5.40) M/uL Hgb 11.9 L (12.0-16.0) g/dl Hct 34.2 L (37.0-47.0) % MCV 94.5 (80.0-100.0) fL MCH 32.9 (25.0-34.0) pg MCHC 34.8 (32.0-36.0) g/dL RDW Std Deviation 42.5 (36.4-46.3) fL RDW Coeff of Li 12.3 (11.5-14.5) % Plt Count 146 (130-400) K/uL MPV 10.9 (9.4-12.4) fL Immature Gran % (Auto) 0.5 % Neut % (Auto) 75.3 % Lymph % (Auto) 12.0 % [place] % (Auto) 10.0 % Eos % (Auto) 1.9 % Baso % (Auto) 0.3 % Neut # (Auto) 6.99 H (1.40-6.50) K/uL Lymph # (Auto) 1.12 L (1.20-3.40) K/uL [place] # (Auto) 0.93 H (0.11-0.59) K/uL Eos # (Auto) 0.18 (0.00-0.50) K/uL Baso # (Auto) 0.03 (0.00-0.20) K/uL Immature Gran # (Auto) 0.05 (0.01-0.20) K/uL PT 11.9 (9.0-12.0) Seconds INR 1.1 (0.9-1.1) APTT 30.0 (21.0-31.0) Seconds PTT Ratio 1.1 Fibrinogen 299 (184-400) mg/dl Heparin Anti-Xa, LM Wt 0.49 (< 0.10) IU/ML Sodium (136-145) mmol/L Potassium (3.5-5.1) mmol/L Chloride (98-107) mmol/L Carbon Dioxide (21-32) mmol/L Anion Gap (3-11) BUN (6-23) mg/dl Creatinine (0.6-1.2) mg/dl Est Cr Clr Drug Dosing Est GFR ( Amer) ml/min Est GFR (Non-Af Amer) ml/min BUN/Creatinine Ratio (10-20) Glucose (70-99(Fasting)) mg/dl Calcium (8.6-10.3) mg/dl Magnesium (1.7-2.4) mg/dl Total Bilirubin (0.2-1.0) mg/dl AST (13-39) U/L ALT (7-52) U/L Alkaline Phosphatase (34-104) U/L Troponin I High Sens (0-14) pg/ml Total Protein (6.0-8.3) gm/dl Albumin (3.4-5.0) gm/dl Globulin (2.5-4.0) gm/dl Albumin/Globulin Ratio (0.9-2) Lipase (11-82) U/L Urine Color Urine Appearance (Clear) Urine pH (4.5-7.5) Ur Specific [place] (1.000-1.030) Urine Protein (Negative) Urine Glucose (UA) (Negative) Urine Ketones (Negative) Urine Blood (Negative) Urine Nitrite (Negative) Urine Bilirubin (Negative) Urine Urobilinogen (Negative) Ur Leukocyte Esterase (Negative) Urine WBC (Auto) (0-5) /hpf Urine RBC (Auto) (0-4) /hpf U Hyaline Cast (Auto) (0-5) /lpf U Epithel Cells (Auto) (0-5) /lpf Urine Bacteria (Auto) (Negative) Blood Type O Negative Antibody Screen NEGATIVE 10/03/22 10/03/22 10/03/22 Range/Units 15:50 15:50 15:50 WBC 14.40 H (4.8-10.8) K/ul RBC 3.93 L (4.20-5.40) M/uL Hgb 12.8 (12.0-16.0) g/dl Hct 37.0 (37.0-47.0) % MCV 94.1 (80.0-100.0) fL MCH 32.6 (25.0-34.0) pg MCHC 34.6 (32.0-36.0) g/dL RDW Std Deviation 42.6 (36.4-46.3) fL RDW Coeff of Li 12.3 (11.5-14.5) % Plt Count 173 (130-400) K/uL MPV 10.9 (9.4-12.4) fL Immature Gran % (Auto) 0.8 % Neut % (Auto) 83.4 % Lymph % (Auto) 9.4 % [place] % (Auto) 6.2 % Eos % (Auto) 0.1 % Baso % (Auto) 0.1 % Neut # (Auto) 12.00 H (1.40-6.50) K/uL Lymph # (Auto) 1.36 (1.20-3.40) K/uL [place] # (Auto) 0.89 H (0.11-0.59) K/uL Eos # (Auto) 0.01 (0.00-0.50) K/uL Baso # (Auto) 0.02 (0.00-0.20) K/uL Immature Gran # (Auto) 0.12 (0.01-0.20) K/uL PT 11.4 (9.0-12.0) Seconds INR 1.0 (0.9-1.1) APTT 24.8 (21.0-31.0) Seconds PTT Ratio 0.9 Fibrinogen (184-400) mg/dl Heparin Anti-Xa, LM Wt (< 0.10) IU/ML Sodium 134 L (136-145) mmol/L Potassium 4.2 (3.5-5.1) mmol/L Chloride 98 (98-107) mmol/L Carbon Dioxide 28 (21-32) mmol/L Anion Gap 8 (3-11) BUN 16 (6-23) mg/dl Creatinine 0.78 (0.6-1.2) mg/dl Est Cr Clr Drug Dosing Not Reportable Est GFR ( Amer) 78.1 ml/min Est GFR (Non-Af Amer) 67.4 ml/min BUN/Creatinine Ratio 20.5 H (10-20) Glucose 116 H (70-99(Fasting)) mg/dl Calcium 9.7 (8.6-10.3) mg/dl Magnesium (1.7-2.4) mg/dl Total Bilirubin 0.7 (0.2-1.0) mg/dl AST 38 (13-39) U/L ALT 20 (7-52) U/L Alkaline Phosphatase 106 H (34-104) U/L Troponin I High Sens 11.1 (0-14) pg/ml Total Protein 6.5 (6.0-8.3) gm/dl Albumin 4.1 (3.4-5.0) gm/dl Globulin 2.4 L (2.5-4.0) gm/dl Albumin/Globulin Ratio 1.7 (0.9-2) Lipase 52 (11-82) U/L Urine Color Urine Appearance (Clear) Urine pH (4.5-7.5) Ur Specific [place] (1.000-1.030) Urine Protein (Negative) Urine Glucose (UA) (Negative) Urine Ketones (Negative) Urine Blood (Negative) Urine Nitrite (Negative) Urine Bilirubin (Negative) Urine Urobilinogen (Negative) Ur Leukocyte Esterase (Negative) Urine WBC (Auto) (0-5) /hpf Urine RBC (Auto) (0-4) /hpf U Hyaline Cast (Auto) (0-5) /lpf U Epithel Cells (Auto) (0-5) /lpf Urine Bacteria (Auto) (Negative) Blood Type Antibody Screen Diagnostic Findings Cervical Spine CT 10/03/22 15:35 CT OF THE CERVICAL SPINE WITHOUT CONTRAST CLINICAL HISTORY: fall COMPARISON STUDY: No previous studies for comparison. TECHNIQUE: Helical axial images of the cervical spine were obtained without IV contrast. Sagittal and coronal reconstructions were viewed. Automated exposure control was utilized for the study. A dose lowering technique was utilized adhering to the principles of ALARA. FINDINGS: Alignment of the cervical spine is anatomic. Vertebral body heights are maintained. No acute cervical spine fracture or subluxation is present. There is no prevertebral edema. Facet joints are intact. Severe multilevel facet arthrosis and moderate degenerative disc disease is noted. There is biapical scarring within the lungs. IMPRESSION: No acute cervical spine fracture or subluxation. ACT 112: Negative or not required by law. Electronically signed by: Rodrigue Perez M.D. 10/03/2022 5:10 PM Chest X-Ray 10/03/22 15:35 XR chest 1V not portable CLINICAL HISTORY: Chest pain, nonspecific COMPARISON STUDY: Chest radiograph March 05, 2015. FINDINGS: There are median sternotomy wires and a left subclavian pacer. Cardiomegaly is unchanged. There is mild interstitial thickening. This may be chronic. There is no evidence for overt pulmonary edema. There is no pneumothorax or pleural effusion. No consolidation to suggest pneumonia. IMPRESSION: Cardiomegaly. Mild interstitial thickening. This is likely chronic however mild interstitial pulmonary edema could appear similar. ACT 112: Negative or not required by law. Electronically signed by: Rodrigue Perez M.D. 10/03/2022 5:[address] 10/03/22 15:35 CT OF THE HEAD WITHOUT CONTRAST CLINICAL HISTORY: fall COMPARISON STUDY: Head CT May 15, 2009. MRI of the brain June 07, 2009. CT DOSE: 1079.10 mGy.cm TECHNIQUE: Helical axial images of the head were obtained without IV contrast. Automated exposure control was utilized for the study. A dose lowering technique was utilized adhering to the principles of ALARA. FINDINGS: No acute intracranial hemorrhage, midline shift or mass effect is present. The ventricular system is stable. White matter hypodensity suggests small vessel disease. The basal cisterns are patent. No extra-axial collections are present. There are no findings to suggest acute dural sinus thrombosis or acute territorial infarct. No acute calvarial fracture. IMPRESSION: 1. No acute intracranial findings. 2. No acute calvarial fracture. ACT 112: Negative or not required by law. Electronically signed by: Rodrigue Perez M.D. 10/03/2022 5:02 PM Hip/Pelvis X-Ray 10/03/22 15:35 XR hip LT 2V w pelvis CLINICAL HISTORY: fall COMPARISON: CT of the abdomen and pelvis November 21, 2018. FINDINGS: There is an acute displaced left femoral neck fracture. Fracture is displaced approximately 1.2 cm. No additional acute fractures are identified on this exam. There is extensive vascular calcification. Moderate amount of stool within the rectum. Sacroiliac joints and symphysis pubis are intact. IMPRESSION: Acute displaced left femoral neck fracture. ACT 112: Negative or not required by law. Electronically signed by: Rodrigue Perez M.D. 10/03/2022 5:13 PM PG Care Time/CCT Total # of Minutes Spent Total Time Spent with Patient: Total time spent is greater than 50% in coordination of care (as documented) at patient's floor/unit and/or counseling patient: Coding Level of Care Code 06208 SUB INP/OBS CARE 3/50MIN Diagnoses Closed left hip fracture S72.002A Atrial fibrillation I48.0 Atrial fibrillation type: paroxysmal CAD (coronary artery disease) I25.10 Associated angina: without angina Coronary Disease-Associated Artery/Lesion type: [place] artery [place] vs. transplanted heart: [place] heart Cardiac pacemaker in situ Z95.0 Hyperlipidemia E78.5 (2) Atrial fibrillation Atrial fibrillation type: paroxysmal Qualified Code(s): I48.0 - Paroxysmal atrial fibrillation (3) CAD (coronary artery disease) Associated angina: without angina Coronary Disease-Associated Artery/Lesion type: [place] artery [place] vs. transplanted heart: [place] heart Qualified Code(s): I25.10 - Atherosclerotic heart disease of [place] coronary artery without angina pectoris
[2022-10-04] MEDS: METOPROLOL SUCC 25MG EXT REL TAB PO SCH (08:26)
[2022-10-04] MEDS: dilTIAZem HCL 180 MG CAPCR PO SCH (08:26)
[2022-10-04] MEDS: LACTATED RINGER'S 1,000 ML IV SCH ×2 (08:28→23:29)
[2022-10-04] MEDS: ACETAMINOPHEN 325 MG TAB PO PRN (08:30)
--- NOTE | 2022-10-04 08:50 | Orthopedic Progress Note ---
Date of Service October 04, 2022 Assessment & Plan (1) Closed fracture of left hip: Plan: Proceed to the operating room this morning. Patient will be readmitted to internal medicine after surgery. She understands the increased risk of bleeding and transfusion because of being on Eliquis. However she also understands the advantages of having her surgery so she can mobilize and get out of bed. Surgical site has been marked and informed consent was already signed. Admission and Anticipated Discharge Date Admission Date: October 03, 2022 Subjective Patient seen and examined on a.m. rounds. She did well overnight. Pain is well controlled so long as her leg is immobilized. Pain continues to be localized to her left hip. Denies numbness or tingling down her leg. Physical Exam Physical Exam: Resting comfortably in bed in no acute distress. She is alert and appropriate this morning, answers all questions and is conversant. Left leg reveals it to be shortened and externally rotated. Neurovascular intact. Results & Data Vital Signs (Past 12 Hours) Vital Signs Temp Pulse Resp BP Pulse Ox O2 Del Method 10/04/22 07:12 36.8 C 76 18 113/78 92 Room Air 10/03/22 22:01 36.8 C 81 18 128/72 96 Room Air (1) Closed fracture of left hip Encounter type: initial encounter Qualified Code(s): S72.002A - Fracture of unspecified part of neck of left femur, initial encounter for closed fracture
[2022-10-04] MEDS ORDERED: PROTHROMBIN COMP CONC- KCENTRA 2,000 UNITS in SYRINGE 0 ML IV ONE (09:00)
[2022-10-04] MEDS ORDERED: SODIUM CHLORIDE 0.9% 250 ML IV PRN (09:47)
[2022-10-04] MEDS ORDERED: MAGNESIUM SULFATE / D5W 1 GM/100 ML BAG IV ONE (09:53)
[2022-10-04] MEDS ORDERED: ORTHO JOINT ANESTHETIC ONE (10:18)
--- NOTE | 2022-10-04 11:02 | Anesthesiology Consultation ---
Date of Service October 04, 2022 History Surgery Operation Date: 10/04/22 12:00 Proposed Procedures p Total Hip Arthroplasty Cemented(Left) - Kevin Dumont MD Height/Weight Height: 5 ft 3 in Weight: 54.4 kg Allergies Allergy/AdvReac Type Severity Reaction Status Date / Time No Known Allergies Allergy Verified 09/21/22 12:04 Medications Home Medications Medication Instructions Recorded Confirmed Last Taken aspirin 81 mg tablet,delayed 81 mg PO DAILY #90 tabs 10/31/18 10/03/22 Unknown release (Adult Low Dose Aspirin) calcium phosphate 600 mg-vit D3 1 tab PO BID #180 tabs 10/31/18 10/03/22 Unknown 500 unit-magnesium oxide 50 mg tablet (Posture-D (with magnesium)) multivit with min-folic 1 tab PO DAILY #30 tabs 10/31/18 10/03/22 Unknown acid-lutein 400 mcg-250 mcg chewable tablet (Centrum Silver) amoxicillin 500 mg tablet 2,000 mg PO .COMPLEX #4 tabs 11/28/20 10/03/22 Unknown prochlorperazine maleate 10 mg 10 mg PO Q6H PRN nausea/vomiting 06/09/21 10/03/22 Unknown tablet (Compazine) diltiazem HCl 360 mg 360 mg PO DAILY #90 caps 11/25/21 10/03/22 Unknown capsule,extended release 24 hr simvastatin 20 mg tablet 20 mg PO QPM #90 tabs 02/02/22 10/03/22 Unknown apixaban 2.5 mg tablet (Eliquis) 2.5 mg PO BID #180 tabs 02/23/22 10/03/22 Unknown metoprolol succinate 25 mg 75 mg PO DAILY #270 tabs 08/07/22 10/03/22 Unknown tablet,extended release 24 hr vitamins A,C,K-ezte-ecoknn 2,148 1 tab PO BID 09/21/22 10/03/22 Unknown mcg-113 mg-45 mg-17.4 mg tablet (PreserVision AREDS) Active Medications Generic Name Dose Route Start Last Admin Trade Name Freq PRN Reason Stop Dose Admin Acetaminophen 650 mg 10/03/22 22:17 10/04/22 08:30 Acetaminophen 325 Mg Tab PO 11/02/22 22:16 650 mg Q4H PRN Administration pain or fever Diltiazem HCl 360 mg 10/04/22 09:00 10/04/22 08:26 Diltiazem Hcl 180 Mg Capcr PO 11/03/22 08:59 360 mg DAILY KASH Administration Lactated Ringer's 1,000 mls @ 70 mls/hr 10/03/22 20:47 10/04/22 08:28 Lr IV 11/02/22 20:46 70 mls/hr .[id number] KASH Administration Magnesium Sulfate/Dextrose 1 gm in 100 mls @ 50 mls/hr 10/04/22 09:53 10/04/22 10:22 Magnesium Sulfate / D5w IV 10/04/22 11:52 50 mls/hr ONE ONE Administration Metoprolol Succinate 75 mg 10/04/22 09:00 10/04/22 08:26 Metoprolol Succ 25mg Ext Rel Tab PO 11/03/22 08:59 75 mg DAILY KASH Administration Simvastatin 20 mg 10/03/22 21:00 10/03/22 21:52 Simvastatin 20 Mg Tab PO 11/02/22 20:59 20 mg QPM KASH Administration NPO Date Last Intake of Fluids: 10/04/22 Time Last Intake of Fluids: 06:00 Last Intake of Fluids Comment: sip of water with meds Date Last Intake of Solids: 10/03/22 Time Last Intake of Solids: 20:00 Past Medical History Medical History Atrial fibrillation Atrial flutter, paroxysmal Bilateral hearing loss CAD (coronary artery disease) Colon polyps Diverticulosis Hyperlipidemia Mitral valve disorder Need for SBE (subacute bacterial endocarditis) prophylaxis SSS (sick sinus syndrome) Past Family History Family History Sister Alzheimer disease Father Heart disease Past Surgical History Surgical History Cardiac pacemaker in situ H/O colonoscopy H/O mitral valve replacement S/P tonsillectomy S/P tubal ligation Social History Smoking Status: Never smoker Do You Dip or Chew Tobacco: No Hx Alcohol Use: No Hx Substance Use: No Physical Exam Vital Signs Last Vital Signs Temp 36.8 C 10/04/22 07:12 Pulse 76 10/04/22 07:12 Resp 18 10/04/22 07:12 BP 113/78 10/04/22 07:12 Pulse Ox 92 10/04/22 07:12 O2 Del Method Room Air 10/04/22 07:12 Constitutional WD/WN, vitals as above Eyes PERRL, conjunctivae normal, anicteric sclerae ENMT external ear and nose normal, oropharynx normal Neck trachea midline, no thyromegaly Respiratory normal respiratory effort, lungs clear to auscultation Cardiovascular Rate/Rhythm: regular rate and + irregularly irregular Heart Sounds: + murmur (systolic in apex) Extremities: normal capillary refill; no calf tenderness and no pedal edema Gastrointestinal (Abdomen) normal bowel sounds, soft, nontender, no hepatosplenomegaly Skin no rashes, warm and dry Neurologic moves all extremities and awake; not confused Psychiatric A+Ox3, euthymic affect Testing Laboratory Results 10/04/22 06:30 10/04/22 06:30 PT 11.9 Seconds (9.0-12.0) 10/04/22 06:30 INR 1.1 (0.9-1.1) 10/04/22 06:30 APTT 30.0 Seconds (21.0-31.0) 10/04/22 06:30 Urine Color Yellow 10/04/22 Unknown Urine Appearance Cloudy (Clear) A 10/04/22 Unknown Urine pH 7.5 (4.5-7.5) 10/04/22 Unknown Ur Specific [place] 1.014 (1.000-1.030) 10/04/22 Unknown Urine Protein Trace (Negative) H 10/04/22 Unknown Urine Glucose (UA) Negative (Negative) 10/04/22 Unknown Urine Ketones 2+ (Negative) H 10/04/22 Unknown Urine Nitrite Negative (Negative) 10/04/22 Unknown Ur Leukocyte Esterase Negative (Negative) 10/04/22 Unknown Urine WBC (Auto) 0 /hpf (0-5) 10/04/22 Unknown Urine RBC (Auto) 0-4 /hpf (0-4) 10/04/22 Unknown U Hyaline Cast (Auto) 1-5 /lpf (0-5) 10/04/22 Unknown U Epithel Cells (Auto) 0-5 /lpf (0-5) 10/04/22 Unknown Urine Bacteria (Auto) Negative (Negative) 10/04/22 Unknown Blood Type O Negative 10/03/22 20:56 Antibody Screen NEGATIVE 10/03/22 20:56
[2022-10-04] MEDS ORDERED: LIDOCAINE 2% 2 ML VIAL/AMP(20MG/ML) INFIL ONE (11:06)
[2022-10-04] MEDS ORDERED: fentaNYL citrate PF 100 MCG/2 ML VIAL ONE (11:06)
[2022-10-04] MEDS ORDERED: PROPOFOL IV EMULSION 10 MG/ML 20 ML VIAL IV ONE (11:06)
[2022-10-04] MEDS ORDERED: DEXAMETHASONE SOD INJ 4 MG/ML VIAL ONE (11:07)
[2022-10-04] MEDS ORDERED: ROCURONIUM BROMIDE 10 MG/ML 5 ML VIAL IV ONE (11:07)
[2022-10-04] MEDS ORDERED: ONDANSETRON INJ 2 MG/ML 2 ML VIAL ONE (11:07)
[2022-10-04] MEDS ORDERED: ePHEDrine sulfate 50 MG/ML AMP IV PRN (11:08)
[2022-10-04] MEDS ORDERED: fentaNYL citrate PF 100 MCG/2 ML VIAL IV PRN (11:08)
[2022-10-04] MEDS ORDERED: ATROPINE SULFATE 0.1 MG/ML 10ML SYR IV PRN (11:08)
[2022-10-04] MEDS ORDERED: KETAMINE 50 MG/5 ML SYRINGE ONE (11:13)
[2022-10-04] MEDS ORDERED: ACETAMINOPHEN 1000 MG/100 ML IV IV ONE (11:20)
[2022-10-04] MEDS ORDERED: SUGAMMADEX SODIUM 200 MG/2 ML VIAL IV ONE (12:29)
[2022-10-04] MEDS ORDERED: TRANEXAMIC ACID / 0.7% NACL 1000MG/100ML BAG IV ONE (12:43)
--- NOTE | 2022-10-04 12:43 | Anesthesiology Progress Note ---
Date of Service October 04, 2022 Anesthesia Post Procedure Vital Signs Vital Signs: Temp Pulse Pulse Resp BP BP Pulse Ox 10/04/22 07:12 36.8 C 76 18 113/78 92 10/03/22 22:01 36.8 C 81 18 128/72 96 10/03/22 20:16 82 18 132/72 95 10/03/22 18:40 82 19 10/03/22 18:30 82 15 10/03/22 18:20 80 17 10/03/22 18:10 77 18 10/03/22 18:00 81 15 10/03/22 18:00 138/72 10/03/22 17:50 78 15 10/03/22 17:40 78 15 10/03/22 17:30 82 21 10/03/22 17:30 142/71 H 10/03/22 17:20 78 16 10/03/22 17:10 78 17 10/03/22 17:00 78 19 10/03/22 17:00 142/65 H 10/03/22 16:59 80 15 10/03/22 16:59 156/68 H 10/03/22 16:57 82 15 10/03/22 16:10 93 10/03/22 16:00 79 20 94 10/03/22 16:00 143/61 H 10/03/22 15:50 76 18 92 10/03/22 15:40 70 17 95 10/03/22 15:30 74 15 94 10/03/22 15:30 145/66 H 10/03/22 15:29 78 24 95 10/03/22 15:41 95 10/03/22 15:31 79 10/03/22 15:28 37 C 85 15 147/82 H 95 O2 Del Method 10/04/22 07:12 Room Air 10/03/22 22:01 Room Air 10/03/22 20:16 Room Air 10/03/22 18:40 10/03/22 18:30 10/03/22 18:20 10/03/22 18:10 10/03/22 18:00 10/03/22 18:00 10/03/22 17:50 10/03/22 17:40 10/03/22 17:30 10/03/22 17:30 10/03/22 17:20 10/03/22 17:10 10/03/22 17:00 10/03/22 17:00 10/03/22 16:59 10/03/22 16:59 10/03/22 16:57 10/03/22 16:10 10/03/22 16:00 10/03/22 16:00 10/03/22 15:50 10/03/22 15:40 10/03/22 15:30 10/03/22 15:30 10/03/22 15:29 10/03/22 15:41 Room Air 10/03/22 15:31 10/03/22 15:28 Room Air Pain Intensity Left Hip: Pain Intensity: 7 Transfer of Care Handoff Completed per policy Notes Mental Status: alert / awake / arousable Patient Amnestic to Procedure: Yes Nausea / Vomiting: adequately controlled Pain: adequately controlled Airway Patency, RR, SpO2: stable & adequate BP & HR: stable & adequate Hydration State: stable & adequate Anesthetic Complications: no major complications apparent and Pt Satisfied with anesthetic care
[2022-10-04] MEDS ORDERED: PHENYLEPHRINE 100MCG/ML 5ML SYR ONE ×2 (12:51)
[2022-10-04] MEDS ORDERED: TRANEXAMIC ACID 100 MG/ML 10 ML VIAL IV ONE (12:56)
--- NOTE | 2022-10-04 13:10 | Operative Report ---
Post Operative Report Pre & Post Diagnosis Operation Date: 10/04/22 12:00 Pre-Op Diagnosis: Acute displaced left femoral Neck fracture Post-Op Diagnosis: Acute displaced left femoral neck fracture I identified the patient and participated in the time-out.: Yes Procedure Operation Date: 10/04/22 12:00 Actual Procedures Left hip cemented hemiarthroplasty (Left) - Kevin Dumont MD Surgeon Kevin Dumont MD Online Advertising Analyst FELI Figueroa PA-C. No resident or fellow was available to assist. Estimated Blood Loss 50 Findings Consistent with Post-Op Diagnosis Specimens left femoral head Anesthesia Type General Complications none Disposition Disposition: Recovery Room Indications 87-year-old female, slipped and fell yesterday morning. She had acute onset of left hip pain. Presented the emergency room where x-rays demonstrated displaced subcapital left femoral neck fracture. I discussed the diagnosis with the patient and her family in the emergency room. Surgery was recommended treatment for this. After discussing the risks and benefits of surgery, alternatives to surgery, and expected outcomes they elected to proceed. All questions were answered. Informed consent was signed. She is on Eliquis and did take her morning dose of Eliquis yesterday. She understood that she was at increased risk for bleeding and transfusion after surgery as a result of this. Description of Procedure Patient was identified in the preoperative holding area where her surgical site was marked. She was given Kcentra in order to decrease the risk of bleeding in the preop holding area. She was brought back to the main operating room where general anesthesia Was administered. She was given 1 g of IV tranexamic acid as well as perioperative antibiotics. She was carefully moved in the lateral decubitus position. Sandbag was placed in the axilla. All bony prominences were padded. She was prepped and draped in usual sterile fashion. Prior to incision a multidisciplinary timeout was called. All in the room were in agreement. I began by making a 10 cm long incision for a posterior approach to the hip. I dissected down through subcutaneous tissues to level the fascia. The fascia was incised in line with the incision. Charnley bow was placed. Fat overlying the short external rotators and piriformis was reflected posteriorly. The piriformis and short external rotators were then taken off the back of the hip with the capsule and an L-shaped capsulotomy. We entered the joint. The leg was internally rotated to expose the femoral neck. A saw was used to make a femoral neck cut below the level of the fracture. Acetabulum is then exposed. The fractured femoral head was removed from the acetabulum using a corkscrew. This was sized to a size 49 on the back table. Next, the acetabulum was irrigated out and dried. The femur was then exposed. A box osteotome was used to remove the lateral neck . Intramedullary guide was used followed by the lateralizing reamer. I then broached her all the way up to a size 5 Atlantic stem. We trialed with a +1.5 offset head. She was a little bit short With this. However she had excellent stability. Therefore we opened up the DePuy [place] cemented size 5 standard offset stem. Cement was mixed on the back table. A cement restrictor was placed distally. The femoral canal was irrigated out and dried. Cement was then placed in the femoral canal and pressurized using a 2 thumbs at the femoral neck. The femoral component was then inserted into the cement and was held in approximately 20 degrees of anteversion while the cement cured. Excess cement was removed. At this point we retrialed now with a +5 offset head. This gave us the same stability exam And made her leg lengths symmetric which I was very happy with. therefore, the real bipolar component was assembled on the back table with a 28 in her head and +5 offset and a 49 outer head. This was then gently impacted onto the trunnion. Acetabulum was inspected for any loose bodies and irrigated out. Hip was atraumatically reduced. At this point the wound was irrigated out with dilute Betadine solution which was allowed to rest for approximately 3 minutes. The periarticular injection cocktail was placed. Piriformis and short external rotators were then repaired through bone tunnel in the posterior aspect of the greater trochanter as well as to the abductor tendon using #2 Vicryl sutures. Fascia was run with a looped #1 PDS. #1 PDS was used in running fashion for the subcutaneous layer. 2-0 Vicryl was used in running fashion for the deep dermis. Zip line and Dermabond was used for the skin. A Silverlon dressing was placed. Patient was then carefully rolled supine, extubated, and transferred to recovery room in stable condition. Postoperative course: Patient be readmitted to the internal medicine team from recovery room. She will be weightbearing as tolerated with a walker. A walker is a lifetime restriction. Posterior hip precautions. She will resume her Eliquis tomorrow for DVT prophylaxis. I attest to the content of the Intraoperative Record and any orders documented therein. Any exceptions are noted below.
[2022-10-04] MEDS ORDERED: ALUMINUM/MAGNESIUM SUSP 30 ML UDC PO PRN (13:14)
[2022-10-04] MEDS ORDERED: NALOXONE HCL 0.4 MG/1 ML VIAL/CARP IV PRN (13:14)
[2022-10-04] MEDS ORDERED: diphenhydrAMINE 50 MG/ML VIAL IV PRN (13:14)
[2022-10-04] MEDS ORDERED: METOCLOPRAMIDE HCL INJ 5 MG/ML 2 ML VIAL IV PRN (13:14)
[2022-10-04] MEDS ORDERED: MAGNESIUM HYDROXIDE SUSP 30 ML UDC PO PRN (13:14)
[2022-10-04] MEDS ORDERED: traMADol HCL 50 MG TABLET PO PRN (13:14)
[2022-10-04] MEDS ORDERED: bisacodyL 10 MG SUPP PR PRN (13:14)
--- NOTE | 2022-10-04 13:14 | Operative Report ---
Post Operative Report Pre & Post Diagnosis Operation Date: 10/04/22 12:00 Pre-Op Diagnosis: Acute displaced left femoral head fracture Post-Op Diagnosis: Acute displaced left femoral head fracture I identified the patient and participated in the time-out.: Yes Procedure Operation Date: 10/04/22 12:00 Actual Procedures p Total Hip Arthroplasty Cemented(Left) - Kevin Dumont MD Surgeon Kevin Dumont MD Transfer Engineer FELI Figueroa PA-C. No resident or fellow was available to assist. Estimated Blood Loss 50 Findings Consistent with Post-Op Diagnosis Specimens femoral head Description of Procedure I was present during the entire case assisting with positioning, prepping, draping, wound retraction, wound closure, dressing and abduction pillow placement. No fellow present. Please see Dr. Dumont procedure note for specifics of the case. I attest to the content of the Intraoperative Record and any orders documented therein. Any exceptions are noted below.
[2022-10-04] MEDS ORDERED: SODIUM CHLORIDE 0.9% 1,000 ML IV SCH (13:15)
[2022-10-04] MEDS ORDERED: PROCHLORPERAZINE MALEATE 10 MG TAB PO PRN (13:17)
[2022-10-04] MEDS ORDERED: NON-FORMULARY MEDICATION (Amoxicillin 500 mg tablet) PO SCH (13:30)
--- NOTE | 2022-10-04 13:37 | XRay Report ---
XR pelvis 1-2V routine CLINICAL HISTORY: In PACU - Post Surgical COMPARISON STUDY: Left hip 10/03/2022. FINDINGS: Status post left hip hemiarthroplasty. The hardware appears intact. No acute fracture or di slocation. Vascular calcifications are noted. Soft tissue gas within the left hip consistent with rec ent postoperative change. IMPRESSION: Status post left hip hemiarthroplasty. No evidence for hardware complication. ACT 112: Negative or not required by law. Electronically signed by: Dalton Chirinos M.D. 10/04/2022 1:36 PM
[2022-10-04] MEDS: ACETAMINOPHEN 500 MG TAB PO SCH ×2 (15:03→20:41)
[2022-10-04] MEDS ORDERED: CHECK SCOPOLAMINE PATCH PLACEMENT SCH (16:00)
[2022-10-04] MEDS: ceFAZolin 2000MG 2,000 MG/15 ML SYR IV SCH (20:26)
--- NOTE | 2022-10-04 20:37 | Electrocardiogram Report ---
Test Reason : Blood Pressure : / mmHG Vent. Rate : 074 BPM Atrial Rate : 074 BPM P-R Int : 224 ms QRS Dur : 150 ms QT Int : 434 ms P-R-T Axes : 022 -64 052 degrees QTc Int : 481 ms Atrial-paced rhythm with prolonged AV conduction with frequent Premature ventricular complexes Right bundle branch block Left anterior fascicular block Bifascicular block Abnormal ECG When compared with ECG of 06-MAR-2015 05:41, Atrial pacing has replaced atrial flutter Nonspecific T wave abnormality no longer evident in Inferior leads Confirmed by Chris Estevez ([id number]) on 10/04/2022 8:37:13 PM Referred By: REFERRED SELF Confirmed By:Chris Estevez
[2022-10-04] MEDS: SENNA 8.6 MG TAB PO SCH (20:39)
[2022-10-04] MEDS: DOCUSATE SODIUM 100 MG CAP PO SCH (20:40)
[2022-10-04] MEDS: SIMVASTATIN 20 MG TAB PO SCH (20:40)
[2022-10-04] MEDS: CEROVITE ADV FORMULA TAB PO SCH (20:41)
[2022-10-04] MEDS ORDERED: CALCIUM PHOSPHATE PO SCH (21:00)
[2022-10-04] MEDS ORDERED: [UNRECOGNIZED DRUG - OTHER] PO SCH (21:00)
[2022-10-04] MEDS ORDERED: MAGNESIUM OXIDE PO SCH (21:00)
[2022-10-04] MEDS ORDERED: CHOLECALCIFEROL PO SCH (21:00)
[2022-10-05] MEDS: ceFAZolin 2000MG 2,000 MG/15 ML SYR IV SCH (03:41)
[2022-10-05] MEDS: ACETAMINOPHEN 500 MG TAB PO SCH ×3 (05:40→21:32)
[2022-10-05 07:26] LABS: Basophils # (auto) 0.02 K/uL (0.00-0.20); Basophils % (auto) 0.2 %; Hematocrit (blood only) 35.3 % (37.0-47.0); Hemoglobin 12.3 g/dl (12.0-16.0); Immature Granulocytes # (auto) 0.06 K/uL (0.01-0.20); Immature Granulocytes % (auto) 0.6 %; Lymphocytes # (auto) 0.69 K/uL (1.20-3.40); Lymphocytes % (auto) 6.4 %; Mean Corpuscular Hemoglobin 33.1 pg (25.0-34.0); Mean Corpuscular Hgb Conc 34.8 g/dL (32.0-36.0); Mean Corpuscular Volume 94.9 fL (80.0-100.0); Mean Platelet Volume 10.7 fL (9.4-12.4); Monocytes # (auto) 0.53 K/uL (0.11-0.59); Monocytes % (auto) 4.9 %; Neutrophils % (auto) 87.9 %; Platelet Count 140 K/uL (130-400); RDW Coefficient of Variation 12.5 % (11.5-14.5); RDW Standard Deviation 43.4 fL (36.4-46.3); Red Blood Count 3.72 M/uL (4.20-5.40)
[2022-10-05 07:50] LABS: Est GFR (Non-African American) 55.2 ml/min; Potassium 4.4 mmol/L (3.5-5.1)
--- NOTE | 2022-10-05 07:50 | XRay Report ---
XR chest 1V portable CLINICAL HISTORY: follow up, eval pulm congestion COMPARISON STUDY: Chest radiograph October 03, 2022. FINDINGS: Left subclavian pacer is in place. There are median sternotomy wires. Interval development of dense left basilar opacity. There is a trace left pleural effusion. No pneumothorax. No evidence f or pulmonary edema. Cardiac mediastinal silhouette is stable. IMPRESSION: Interval development of dense left basilar opacity which could reflect pneumonia, aspirat ion pneumonitis or left lower lobe atelectasis. Trace left pleural effusion. ACT 112: Negative or not required by law. Electronically signed by: Rodrigue Perez M.D. 10/05/2022 7:49 AM
[2022-10-05 07:51] LABS: Calcium 8.6 mg/dl (8.6-10.3); Creatinine Clr Calc Pharmacy 34.3 ml/min; Magnesium 1.7 mg/dl (1.7-2.4)
[2022-10-05] MEDS ORDERED: dexAMETHasone 4 MG TAB PO SCH (08:00)
[2022-10-05] MEDS: ASPIRIN 81 MG ECTAB PO SCH (08:26)
[2022-10-05] MEDS: METOPROLOL SUCC 25MG EXT REL TAB PO SCH (08:26)
[2022-10-05] MEDS: CEROVITE ADV FORMULA TAB PO SCH ×2 (08:26→21:31)
[2022-10-05] MEDS: DOCUSATE SODIUM 100 MG CAP PO SCH ×2 (08:26→21:31)
[2022-10-05] MEDS: dilTIAZem HCL 180 MG CAPCR PO SCH (08:27)
[2022-10-05] MEDS: APIXABAN 2.5 MG TAB PO SCH ×2 (08:27→21:32)
[2022-10-05] MEDS: MULTIVITAMIN TAB PO SCH (08:28)
[2022-10-05] MEDS ORDERED: [UNRECOGNIZED DRUG - OTHER] PO SCH (09:00)
[2022-10-05] MEDS ORDERED: MAGNESIUM SULFATE / D5W 1 GM/100 ML BAG IV ONE (10:07)
--- NOTE | 2022-10-05 10:16 | Orthopedic Progress Note ---
Date of Service October 05, 2022 Assessment & Plan (1) S/P hip hemiarthroplasty: Plan: POD 1 s/p L hip hemiarthroplasty with Dr Dumont -Weight bearing as tolerated with walker to assist in ambulation -Posterior hip precautions, abduction pillow -PT/OT -Frequently ice -Leave Silverlon dressing in tact until follow up appt in 2 weeks -DVT prophylaxis: resume eliquis, HEMANT compression stockings -Pain control: per primary -case management for discharge needs -Follow up in 2 weeks with [facility]. Please call our office sooner @ [phone] if you have any questions or concerns Admission and Anticipated Discharge Date Admission Date: October 03, 2022 Subjective Pt seen and examined bedside. She says she is doing well this morning and has no pain. She is pleased with the outcome of her surgery. Denies any numbness, tingling, calf pain, fevers, chills, chest pain, shortness of breath. She worked with physical therapy this morning and she says she did well. She was able to get up and out of bed and walk a little. She has no questions or concerns this morning. Physical Exam Physical Exam: General: Pt laying in hospital bed AA&O, in NAD, calm and cooperative during exam Lower Extremity: Dressing in tact and not saturated. Pt has full ROM of ankle and all 5 digits. Pt has 3/5 strength with resisted DF/PF. Calf supple and non tender. NVI with sensation to light touch distally and good distal pulses present. Lower extremity noted to have good color and temperature with no signs of vascular or lymphatic insufficiency. Results & Data Vital Signs (Past 12 Hours) Vital Signs Temp Pulse Resp BP Pulse Ox O2 Del Method 10/05/22 07:55 36.3 C L 83 14 107/69 94 Room Air 10/05/22 03:36 36.8 C 89 18 97/63 L 97 Room Air 10/04/22 22:40 36.8 C 87 18 100/62 96 Room Air
[2022-10-05] MEDS: LACTATED RINGER'S 1,000 ML IV SCH (10:58)
--- NOTE | 2022-10-05 14:41 | Hospitalist Progress Note ---
Date of Service October 05, 2022 Assessment & Plan (1) Closed left hip fracture: Plan: Fall at home Imaging w/ acute displaced left femoral neck fracture Orthopedics consulted and now s/p ORIF on 10/04 Doing very well [id number] controlled Working with PT/OT and ambulating, needs rehab Continue pain control, bowel regimen Hgb normal-follow CBC, BMP in AM f/u with Ortho in 2 weeks (2) Atrial fibrillation: Plan: Held Eliquis for operation, Kcentra given preop Now back on home ELiquis with paced atrial rhythm on ECG Continue rate control with diltiazem and metoprolol Keep K/mag replete,give 1 gram IV magnesium today (3) Hyponatremia: Plan: Na+ 130 today checked Ur Na 10 and Ur Osm 715, with concentrated urine and lower urine output this AM consistent with hypovolemia, 2+ ketones on UA -increase LR to 100mL/hr -follow BMP in AM (4) CAD (coronary artery disease): Plan: No acute issues Continue ASA, Eliquis, metoprolol and simvastatin (5) Cardiac pacemaker in situ: Plan: for tachybrady syndrome no acute issues (6) Hyperlipidemia: Plan: Continue simvastatin Plan VTE Prophylaxis - Eliquis, SCDs Dispo-continued stay, doing very well, medically stable for discharge to rehab when available Admission and Anticipated Discharge Date Admission Date: October 03, 2022 Subjective Pt feeling very well.No pain in hip at all. Denies CP, SOB, lightheadedness, nausea, abd pain. She is trying to eat and drink more and put salt on her food. Physical Exam Constitutional: WD/WN, vitals as above Respiratory: normal respiratory effort, lungs clear to auscultation Cardiovascular: RRR, no murmur, no edema Gastrointestinal (Abdomen): normal bowel sounds, soft, nontender, no hepatosplenomegaly Musculoskeletal: left hip with dressing in place c/d/i Neurologic: no focal motor deficits and not confused Psychiatric: A+Ox3, euthymic affect Genitourinary: Cuevas in place with clear yellow urine Results & Data Results & Data Vital Signs (Past 12 Hours) Vital Signs Temp Pulse Resp BP BP Pulse Ox O2 Del Method 10/05/22 11:47 36.3 C L 60 16 99/59 L 93 Room Air 10/05/22 07:55 36.3 C L 83 14 107/69 94 Room Air 10/05/22 03:36 36.8 C 89 18 97/63 L 97 Room Air Laboratory Results CBC, BMP, magnesium reviewed PG Care Time/CCT Total # of Minutes Spent Total Time Spent with Patient: Total time spent is greater than 50% in coordination of care (as documented) at patient's floor/unit and/or counseling patient: Coding Level of Care Code 36822 SUB INP/OBS CARE 2/35MIN Diagnoses Closed left hip fracture S72.002A Atrial fibrillation I48.0 Atrial fibrillation type: paroxysmal Hyponatremia E87.1 CAD (coronary artery disease) I25.10 Coronary Disease-Associated Artery/Lesion type: [place] artery [place] vs. transplanted heart: [place] heart Associated angina: without angina Cardiac pacemaker in situ Z95.0 Hyperlipidemia E78.5 (2) Atrial fibrillation Atrial fibrillation type: paroxysmal Qualified Code(s): I48.0 - Paroxysmal atrial fibrillation (4) CAD (coronary artery disease) Coronary Disease-Associated Artery/Lesion type: [place] artery [place] vs. transplanted heart: [place] heart Associated angina: without angina Qualified Code(s): I25.10 - Atherosclerotic heart disease of [place] coronary artery without angina pectoris
[2022-10-05] MEDS: SENNA 8.6 MG TAB PO SCH (21:31)
[2022-10-05] MEDS: SIMVASTATIN 20 MG TAB PO SCH (21:32)
[2022-10-06] MEDS: LACTATED RINGER'S 1,000 ML IV SCH ×2 (04:45→08:22)
[2022-10-06] MEDS: ACETAMINOPHEN 500 MG TAB PO SCH ×3 (06:21→21:00)
[2022-10-06 08:09] LABS: Basophils # (auto) 0.01 K/uL (0.00-0.20); Basophils % (auto) 0.1 %; Hematocrit (blood only) 33.2 % (37.0-47.0); Hemoglobin 11.5 g/dl (12.0-16.0); Immature Granulocytes # (auto) 0.08 K/uL (0.01-0.20); Immature Granulocytes % (auto) 0.7 %; Lymphocytes # (auto) 1.03 K/uL (1.20-3.40); Lymphocytes % (auto) 8.9 %; Mean Corpuscular Hemoglobin 32.4 pg (25.0-34.0); Mean Corpuscular Hgb Conc 34.6 g/dL (32.0-36.0); Mean Corpuscular Volume 93.5 fL (80.0-100.0); Mean Platelet Volume 10.7 fL (9.4-12.4); Monocytes # (auto) 0.72 K/uL (0.11-0.59); Monocytes % (auto) 6.2 %; Neutrophils # (auto) 9.74 K/uL (1.40-6.50); Neutrophils % (auto) 84.1 %; Platelet Count 143 K/uL (130-400); RDW Coefficient of Variation 12.6 % (11.5-14.5); RDW Standard Deviation 43.6 fL (36.4-46.3); Red Blood Count 3.55 M/uL (4.20-5.40); White Blood Count 11.58 K/ul (4.8-10.8)
[2022-10-06] MEDS: CEROVITE ADV FORMULA TAB PO SCH ×2 (08:20→21:00)
[2022-10-06] MEDS: MULTIVITAMIN TAB PO SCH (08:21)
[2022-10-06] MEDS: DOCUSATE SODIUM 100 MG CAP PO SCH ×2 (08:21→20:59)
[2022-10-06] MEDS: ASPIRIN 81 MG ECTAB PO SCH (08:21)
[2022-10-06] MEDS: METOPROLOL SUCC 25MG EXT REL TAB PO SCH (08:21)
[2022-10-06] MEDS: APIXABAN 2.5 MG TAB PO SCH ×2 (08:21→20:59)
[2022-10-06] MEDS: dilTIAZem HCL 180 MG CAPCR PO SCH (08:21)
[2022-10-06 08:26] LABS: Calcium 8.9 mg/dl (8.6-10.3); Creatinine Clr Calc Pharmacy 40.4 ml/min; Est GFR (African American) 78.1 ml/min; Est GFR (Non-African American) 67.4 ml/min; Magnesium 2.2 mg/dl (1.7-2.4); Potassium 4.9 mmol/L (3.5-5.1)
--- NOTE | 2022-10-06 09:29 | Orthopedic Progress Note ---
Date of Service October 06, 2022 Assessment & Plan (1) S/P hip hemiarthroplasty: Plan: POD 2 s/p L hip hemiarthroplasty with Dr Dumont -Weight bearing as tolerated with walker to assist in ambulation -Posterior hip precautions, abduction pillow -PT/OT -Frequently ice -Leave Silverlon dressing in tact until follow up appt in 2 weeks -DVT prophylaxis: resume eliquHEMANT connolly compression stockings -Pain control: per primary -case management for discharge needs -Follow up in 2 weeks with [facility]. Please call our office sooner @ [phone] if you have any questions or concerns Admission and Anticipated Discharge Date Admission Date: October 03, 2022 Subjective This 87-year-old female is day 2 status post left hip hemiarthroplasty for a femoral neck fracture. Patient states she has no pain at present. She states that the only thing they are giving her is Tylenol. She states that she will most likely need some rehab before being discharged home. Currently she denies chest pain, shortness of breath, fever, chills, sweats, lethargy, numbness or tingling in her left lower extremity. She also denies nausea, vomiting, diarrhea or difficulty voiding Review of Systems Review of Systems: All systems reviewed & are unremarkable except as noted in Subjective Physical Exam Physical Exam: Left hip: Outer dressing was removed. Silverlon is clean dry and intact and left in place. Patient is able to perform an active straight leg raise test. She is able to actively dorsi and plantarflex her foot without issue. Quad strength is 4 out of 5. She has no pain with passive hip flexion near 90 degrees as well as with light passive internal or external hip rotation. Logroll test is negative. She is neurovascular intact in the left lower extremity. Results & Data Vital Signs (Past 12 Hours) Vital Signs Temp Pulse Resp BP Pulse Ox O2 Del Method 10/06/22 08:17 36.5 C 68 17 121/65 95 Room Air Diagnostic Findings Laboratory Results WBC 11.58 K/ul (4.8-10.8) H 10/06/22 07:30 RBC 3.55 M/uL (4.20-5.40) L 10/06/22 07:30 Hgb 11.5 g/dl (12.0-16.0) L 10/06/22 07:30 Hct 33.2 % (37.0-47.0) L 10/06/22 07:30 MCV 93.5 fL (80.0-100.0) 10/06/22 07: MCH 32.4 pg (25.0-34.0) 10/06/22 07: MCHC 34.6 g/dL (32.0-36.0) 10/06/22 07: RDW Std Deviation 43.6 fL (36.4-46.3) 10/06/22 07: RDW Coeff of Li 12.6 % (11.5-14.5) 10/06/22 07: Plt Count 143 K/uL (130-400) 10/06/22 07: MPV 10.7 fL (9.4-12.4) 10/06/22 07: Immature Gran % (Auto) 0.7 % 10/06/22 07:30 Neut % (Auto) 84.1 % 10/06/22 07:30 Lymph % (Auto) 8.9 % 10/06/22 07:30 [place] % (Auto) 6.2 % 10/06/22 07:30 Eos % (Auto) 0.0 % 10/06/22 07: Baso % (Auto) 0.1 % 10/06/22 07:30 Neut # (Auto) 9.74 K/uL (1.40-6.50) H 10/06/22 07:30 Lymph # (Auto) 1.03 K/uL (1.20-3.40) L 10/06/22 07:30 [place] # (Auto) 0.72 K/uL (0.11-0.59) H 10/06/22 07:30 Eos # (Auto) 0.00 K/uL (0.00-0.50) 10/06/22 07:30 Baso # (Auto) 0.01 K/uL (0.00-0.20) 10/06/22 07: Immature Gran # (Auto) 0.08 K/uL (0.01-0.20) 10/06/22 07:30 PT 11.9 Seconds (9.0-12.0) 10/04/22 06:30 INR 1.1 (0.9-1.1) 10/04/22 06:30 APTT 30.0 Seconds (21.0-31.0) 10/04/22 06:30 PTT Ratio 1.1 10/04/22 06:30 Fibrinogen 299 mg/dl (184-400) 10/04/22 06:30 Heparin Anti-Xa, LM Wt 0.49 IU/ML (< 0.10) 10/04/22 06:30 Sodium 132 mmol/L (136-145) L 10/06/22 07:30 Potassium 4.9 mmol/L (3.5-5.1) 10/06/22 07:30 Chloride 98 mmol/L (98-107) 10/06/22 07:30 Carbon Dioxide 30 mmol/L (21-32) 10/06/22 07:30 Anion Gap 4 (3-11) 10/06/22 07:30 BUN 32 mg/dl (6-23) H 10/06/22 07:30 Creatinine 0.78 mg/dl (0.6-1.2) 10/06/22 07:30 Est Cr Clr Drug Dosing 40.4 ml/min 10/06/22 07:30 Est GFR ( Amer) 78.1 ml/min 10/06/22 07:30 Est GFR (Non-Af Amer) 67.4 ml/min 10/06/22 07:30 BUN/Creatinine Ratio 41.0 (10-20) H 10/06/22 07:30 Glucose 135 mg/dl (70-99(Fasting)) H 10/06/22 07:30 Calcium 8.9 mg/dl (8.6-10.3) 10/06/22 07:30 Magnesium 2.2 mg/dl (1.7-2.4) 10/06/22 07:30 Total Bilirubin 0.7 mg/dl (0.2-1.0) 10/03/22 15:50 AST 38 U/L (13-39) 10/03/22 15:50 ALT 20 U/L (7-52) 10/03/22 15:50 Alkaline Phosphatase 106 U/L (34-104) H 10/03/22 15:50 Troponin I High Sens 11.1 pg/ml (0-14) 10/03/22 15:50 Total Protein 6.5 gm/dl (6.0-8.3) 10/03/22 15:50 Albumin 4.1 gm/dl (3.4-5.0) 10/03/22 15:50 Globulin 2.4 gm/dl (2.5-4.0) L 10/03/22 15:50 Albumin/Globulin Ratio 1.7 (0.9-2) 10/03/22 15:50 Lipase 52 U/L (11-82) 10/03/22 15:50 Urine Color Yellow 10/04/22 Unknown Urine Appearance Cloudy (Clear) A 10/04/22 Unknown Urine pH 7.5 (4.5-7.5) 10/04/22 Unknown Ur Specific [place] 1.014 (1.000-1.030) 10/04/22 Unknown Urine Protein Trace (Negative) H 10/04/22 Unknown Urine Glucose (UA) Negative (Negative) 10/04/22 Unknown Urine Ketones 2+ (Negative) H 10/04/22 Unknown Urine Blood Negative (Negative) 10/04/22 Unknown Urine Nitrite Negative (Negative) 10/04/22 Unknown Urine Bilirubin Negative (Negative) 10/04/22 Unknown Urine Urobilinogen Negative (Negative) 10/04/22 Unknown Ur Leukocyte Esterase Negative (Negative) 10/04/22 Unknown Urine WBC (Auto) 0 /hpf (0-5) 10/04/22 Unknown Urine RBC (Auto) 0-4 /hpf (0-4) 10/04/22 Unknown U Hyaline Cast (Auto) 1-5 /lpf (0-5) 10/04/22 Unknown U Epithel Cells (Auto) 0-5 /lpf (0-5) 10/04/22 Unknown Urine Bacteria (Auto) Negative (Negative) 10/04/22 Unknown Urine Osmolality 715 mOsm/kg (500-800) 10/05/22 13:00 Ur Random Sodium 10 mmol/L 10/05/22 13:00 Blood Type O Negative 10/03/22 20:56 Antibody Screen NEGATIVE 10/03/22 20:[address] 10/03/22 15:35 CT OF THE CERVICAL SPINE WITHOUT CONTRAST CLINICAL HISTORY: fall COMPARISON STUDY: No previous studies for comparison. TECHNIQUE: Helical axial images of the cervical spine were obtained without IV contrast. Sagittal and coronal reconstructions were viewed. Automated exposure control was utilized for the study. A dose lowering technique was utilized adhering to the principles of ALARA. FINDINGS: Alignment of the cervical spine is anatomic. Vertebral body heights are maintained. No acute cervical spine fracture or subluxation is present. There is no prevertebral edema. Facet joints are intact. Severe multilevel facet arthrosis and moderate degenerative disc disease is noted. There is biapical scarring within the lungs. IMPRESSION: No acute cervical spine fracture or subluxation. ACT 112: Negative or not required by law. Electronically signed by: Rodrigue Perez M.D. 10/03/2022 5:[address] 10/03/22 15:35 CT OF THE HEAD WITHOUT CONTRAST CLINICAL HISTORY: fall COMPARISON STUDY: Head CT May 15, 2009. MRI of the brain June 07, 2009. CT DOSE: 1079.10 mGy.cm TECHNIQUE: Helical axial images of the head were obtained without IV contrast. Automated exposure control was utilized for the study. A dose lowering tech nique was utilized adhering to the principles of ALARA. FINDINGS: No acute intracranial hemorrhage, midline shift or mass effect is present. The ventricular system is stable. White matter hypodensity suggests small vessel disease. The basal cisterns are patent. No extra-axial collections are present. There are no findings to suggest acute dural sinus thrombosis or acute territorial infarct. No acute calvarial fracture. IMPRESSION: 1. No acute intracranial findings. 2. No acute calvarial fracture. ACT 112: Negative or not required by law. Electronically signed by: Rodrigue Perez M.D. 10/03/2022 5:02 PM Hip/Pelvis X-Ray 10/03/22 15:35 XR hip LT 2V w pelvis CLINICAL HISTORY: fall COMPARISON: CT of the abdomen and pelvis November 21, 2018. FINDINGS: There is an acute displaced left femoral neck fracture. Fracture is displaced approximately 1.2 cm. No additional acute fractures are identified on this exam. There is extensive vascular calcification. Moderate amount of stool within the rectum. Sacroiliac joints and symphysis pubis are intact. IMPRESSION: Acute displaced left femoral neck fracture. ACT 112: Negative or not required by law. Electronically signed by: Rodrigue Perez M.D. 10/03/2022 5:13 PM Pelvis X-Ray 10/04/22 13:14 XR pelvis 1-2V routine CLINICAL HISTORY: In PACU - Post Surgical COMPARISON STUDY: Left hip 10/03/2022. FINDINGS: Status post left hip hemiarthroplasty. The hardware appears intact. No acute fracture or dislocation. Vascular calcifications are noted. Soft tissue gas within the left hip consistent with recent postoperative change. IMPRESSION: Status post left hip hemiarthroplasty. No evidence for hardware complication. ACT 112: Negative or not required by law. Electronically signed by: Dalton Chirinos M.D. 10/04/2022 1:36 PM Chest X-Ray 10/05/22 06:00 XR chest 1V portable CLINICAL HISTORY: follow up, eval pulm congestion COMPARISON STUDY: Chest radiograph October 03, 2022. FINDINGS: Left subclavian pacer is in place. There are median sternotomy wires. Interval development of dense left basilar opacity. There is a trace left pleural effusion. No pneumothorax. No evidence for pulmonary edema. Cardiac mediastinal silhouette is stable. IMPRESSION: Interval development of dense left basilar opacity which could reflect pneumonia, aspiration pneumonitis or left lower lobe atelectasis. Trace left pleural effusion. ACT 112: Negative or not required by law. Electronically signed by: Rodrigue Perez M.D. 10/05/2022 7:49 AM
--- NOTE | 2022-10-06 17:13 | Hospitalist Progress Note ---
Date of Service October 06, 2022 Assessment & Plan (1) Closed left hip fracture: Plan: Fall at home Imaging w/ acute displaced left femoral neck fracture Orthopedics consulted and now s/p ORIF on 10/04 Doing very well [id number] controlled with tylenol Working with PT/OT and ambulating, needs rehab Continue pain control, bowel regimen Hgb only slight drop f/u with Ortho in 2 weeks (2) Atrial fibrillation: Plan: Held Eliquis for operation, Kcentra given preop Now back on home ELiquis with paced atrial rhythm on ECG Continue rate control with diltiazem and metoprolol (3) Hyponatremia: Plan: Na+ 130 on POD#1 and now improved to 132 with IVFs Ur Na 10 and Ur Osm 715 consistent with hypovolemia, 2+ ketones on UA dc LR (4) CAD (coronary artery disease): Plan: No acute issues Continue ASA, Eliquis, metoprolol and simvastatin (5) 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 No pain. No CP,SOB,nausea, lightheadedness. She has walked multiple times today in the halls. She apparently was accepted at [facility] today but I was never informed of such and therefore she was not discharged. Physical Exam Constitutional: WD/WN, vitals as above Respiratory: normal respiratory effort, lungs clear to auscultation Cardiovascular: RRR, no murmur, no edema Gastrointestinal (Abdomen): normal bowel sounds, soft, nontender, no hepatosp lenomegaly Neurologic: no focal motor deficits and not confused Psychiatric: A+Ox3, euthymic affect Results & Data Results & Data Vital Signs (Past 12 Hours) Vital Signs Temp Pulse Resp BP BP Pulse Ox O2 Del Method 10/06/22 16:24 36.3 C L 62 20 95/48 L 91 Room Air 10/06/22 08:17 36.5 C 68 17 121/65 95 Room Air PG Care Time/CCT Total # of Minutes Spent Total Time Spent with Patient: Total time spent is greater than 50% in coordination of care (as documented) at patient's floor/unit and/or counseling patient: Coding Level of Care Code 84803 SUB INP/OBS CARE 2/35MIN Diagnoses Closed left hip fracture S72.002A Atrial fibrillation I48.0 Atrial fibrillation type: paroxysmal Hyponatremia E87.1 CAD (coronary artery disease) I25.10 Coronary Disease-Associated Artery/Lesion type: [place] artery [place] vs. transplanted heart: [place] heart Associated angina: without angina Cardiac pacemaker in situ Z95.0 Hyperlipidemia E78.5 (2) Atrial fibrillation Atrial fibrillation type: paroxysmal Qualified Code(s): I48.0 - Paroxysmal a trial fibrillation (4) CAD (coronary artery disease) Coronary Disease-Associated Artery/Lesion type: [place] artery [place] vs. transplanted heart: [place] heart Associated angina: without angina Qualified Code(s): I25.10 - Atherosclerotic heart disease of [place] coronary artery without angina pectoris
[2022-10-06] MEDS: SIMVASTATIN 20 MG TAB PO SCH (20:59)
[2022-10-06] MEDS: SENNA 8.6 MG TAB PO SCH (21:00)
[2022-10-07] MEDS: ACETAMINOPHEN 500 MG TAB PO SCH (05:20)
[2022-10-07] MEDS: DOCUSATE SODIUM 100 MG CAP PO SCH (08:17)
[2022-10-07] MEDS: METOPROLOL SUCC 25MG EXT REL TAB PO SCH (08:17)
[2022-10-07] MEDS: MULTIVITAMIN TAB PO SCH (08:17)
[2022-10-07] MEDS: dilTIAZem HCL 180 MG CAPCR PO SCH (08:18)
[2022-10-07] MEDS: CEROVITE ADV FORMULA TAB PO SCH (08:18)
[2022-10-07] MEDS: APIXABAN 2.5 MG TAB PO SCH (08:18)
[2022-10-07] MEDS: ASPIRIN 81 MG ECTAB PO SCH (08:18)
--- NOTE | 2022-10-07 10:42 | Orthopedic Progress Note ---
Date of Service October 07, 2022 Assessment & Plan (1) S/P hip hemiarthroplasty: Plan: Patient is doing great POD 3 s/p L hip hemiarthroplasty with Dr Dumont -Weight bearing as tolerated with walker to assist in ambulation -Posterior hip precautions, abduction pillow we discussed these and reviewed these during her exam today -PT/OT -Frequently ice -Leave Silverlon dressing in tact until follow up appt in 2 weeks -DVT prophylaxis: resume HEMANT weller compression stockings -Pain control: per primary -case management for discharge needs -Follow up in 2 weeks with [facility]. Please call our office sooner @ [phone] if you have any questions or concerns Admission and Anticipated Discharge Date Admission Date: October 03, 2022 Subjective Patient is a 87-year-old female who is status post a left hemiarthroplasty on 10/[address] Florian off. She is postop day #3 she was seen this morning sitting in her bedside chair. She is alert and oriented and answering questions appropriately. She she states she is doing well and surprised she does not have a lot of pain in her hip. She states "I question if they even did surgery because my hip feel so good.". She states if she is walking she has some achiness in the hip but otherwise she is feeling great. She denies any fever chills any drainage from the incision. She denies any chest pain or shortness of breath or calf pain. She offers no concerns Review of Systems Review of Systems: Please refer to HPI Physical Exam Physical Exam: General: Patient is alert and oriented x3 pleasant and conversive Integumentary/musculoskeletal: Dressing is intact negative for any soiling negative for any erythema or tenderness surrounding this area. She is able to tolerate active knee extension and gentle hip flexion AB duction and internal and external rotation without complaints of pain. Her calf is soft and nontender. She is able to actively dorsiflex and plantarflex ankle dorsal pedis pulses 1+. Sensation is intact throughout left lower extremity. Left lower extremity is neurovascular intact Results & Data Vital Signs (Past 12 Hours) Vital Signs Temp Pulse Resp BP Pulse Ox Pulse Ox O2 Del Method 10/07/22 07:50 36.6 C 53 L 20 129/72 99 Room Air 10/07/22 04:00 96 10/07/22 00:00 96 O2 Del Method 10/07/22 07:50 10/07/22 04:00 Room Air 10/07/22 00:00 Room Air
--- NOTE | 2022-10-07 11:51 | Discharge Summary ---
Discharge Summary Date of Service October 07, 2022 Notes For Next Care Provider Check BMP in 1-2 days Medication Changes From Visit Tylenol 1000mg po tid Docusate 100mg po bid Admission HPI Per Admitting Provider Tenisha Botello is an 87 year old female who presents to the ER with a fall and subsequent left hip pain. She reports turning around in her kitchen and thinks she turned too fast and lost balance and fell. Hit left leg on cupboard, head and elbow. Having significant left groin pain since the fall and unable to walk. Hip fracture found on XRs in the ER. No known osteoporosis but lso no recent DEXA scans. 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 Doing well since then - no shortness of breath or chest pain on walking. Compliant with medications and just saw her cable tower operator in July. Very active walks up and down stairs without symptoms. No history of heart failure. 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 She last took her Eliquis this morning around 9am. Principal Dx & Hospital Course #1 = Principal Diagnosis (1) Closed left hip fracture: Fall at home Imaging w/ acute displaced left femoral neck fracture Orthopedics consulted and now s/p ORIF on 10/04 Doing very well [id number] controlled with tylenol Working with PT/OT and ambulating, needs rehab Continue pain control, bowel regimen Hgb only slight drop f/u with Ortho in 2 weeks (2) Atrial fibrillation: Held Eliquis for operation, Kcentra given preop Now back on home ELiquis with paced atrial rhythm on ECG Continue rate control with diltiazem and metoprolol (3) Hyponatremia: Na+ 130 on POD#1 and now improved to 132 with IVFs Ur Na 10 and Ur Osm 715 consistent with hypovolemia, 2+ ketones on UA Taking po well now check BMP at rehab in 1-2 days (4) CAD (coronary artery disease): No acute issues Continue ASA, Eliquis, metoprolol and simvastatin (5) Cardiac pacemaker in situ: for tachybrady syndrome no acute issues (6) Hyperlipidemia: Continue simvastatin Plan VTE Prophylaxis - Eliquis, SCDs Dispo-doing very well, medically stable for discharge to rehab today Discharge Exam Constitutional WD/WN, vitals as above Respiratory normal respiratory effort, lungs clear to auscultation Cardiovascular RRR, no murmur, no edema Gastrointestinal (Abdomen) normal bowel sounds, soft, nontender, no hepatosplenomegaly Neurologic no focal motor deficits and not confused Psychiatric A+Ox3, euthymic affect Updated Medication List Medication Instructions Recorded Confirmed Type aspirin 81 mg tablet,delayed 81 mg PO DAILY #90 tabs 10/31/18 10/03/22 Rx release (Adult Low Dose Aspirin) calcium phosphate 600 mg-vit D3 1 tab PO BID #180 tabs 10/31/18 10/03/22 Rx 500 unit-magnesium oxide 50 mg tablet (Posture-D (with magnesium)) multivit with min-folic 1 tab PO DAILY #30 tabs 10/31/18 10/03/22 Rx acid-lutein 400 mcg-250 mcg chewable tablet (Centrum Silver) amoxicillin 500 mg tablet 2,000 mg PO .COMPLEX #4 tabs 11/28/20 10/03/22 Rx prochlorperazine maleate 10 mg 10 mg PO Q6H PRN nausea/vomiting 06/09/21 10/03/22 History tablet (Compazine) diltiazem HCl 360 mg 360 mg PO DAILY #90 caps 11/25/21 10/03/22 Rx capsule,extended release 24 hr simvastatin 20 mg tablet 20 mg PO QPM #90 tabs 02/02/22 10/03/22 Rx apixaban 2.5 mg tablet (Eliquis) 2.5 mg PO BID #180 tabs 02/23/22 10/03/22 Rx metoprolol succinate 25 mg 75 mg PO DAILY #270 tabs 08/07/22 10/03/22 Rx tablet,extended release 24 hr vitamins A,C,A-fnnq-uxbhro 2,148 1 tab PO BID 09/21/22 10/03/22 History mcg-113 mg-45 mg-17.4 mg tablet (PreserVision AREDS) acetaminophen 500 mg tablet 1,000 mg PO Q8 #60 tabs 10/07/22 Rx (Tylenol Extra Strength) docusate sodium 100 mg capsule 100 mg PO BID #60 caps 10/07/22 Rx Hospital Stay Data Consultations 10/03/22 16:55 Consult Orthopedic Surgery Stat ED Decision to Admit Stat Procedures Performed Operation Date: 10/04/22 12:00 Actual Procedures p Left Hip Abner-Arthroplasty Cemented(Left) - Kevin Dumont MD Diagnostic Imagining Performed 10/03/22 15:35 CT cervical spine wo con Stat CT head/brain wo con Stat Pending Results Patient Have Any Pending Studies at Discharge: No Discharge Instructions Given to Patient (Per Discharging Provider) Please check a BMP in 1-2 days for hyponatremia which is improving. Total Time Total Time Spent Total Time Spent (In Minutes): 35 min Coding Level of Care Code 93370 INP/OBS DISCH >30 MIN Diagnoses Closed left hip fracture S72.002A Atrial fibrillation I48.0 Atrial fibrillation type: paroxysmal Hyponatremia E87.1 CAD (coronary artery disease) I25.10 Associated angina: without angina Coronary Disease-Associated Artery/Lesion type: [place] artery [place] vs. transplanted heart: [place] heart Cardiac pacemaker in situ Z95.0 Hyperlipidemia E78.5
--- NOTE | 2022-10-20 08:12 | Orthopedic Consultation ---
Date of Consultation October 20, 2022 Assessment & Plan (1) Closed fracture of left hip: Discussed diagnosis and treatment options with patient. Surgery (hemiarthroplasty, cemented) is recommended treatment. She's at increased risk of bleeding complications due to Eliquis use. Reversal agent not available at this hospital. After reviewing all her options and answering all questions, as well as reviewing risks of surgery, patient elects to proceed with surgery. Plan on surgery tomorrow. NPO after midnight. (2) Atrial fibrillation: (3) Anticoagulant long-term use: History of Present Illness Attending Physician: Maritza Corrales MD History of Present Illness Tenisha Botello is an 87 year old female who presents to the ER with a fall and subsequent left hip pain. She reports turning around in her kitchen and thinks she turned too fast and lost balance and fell. Hit left leg on cupboard, head and elbow. Having significant left groin pain since the fall and unable to walk. Hip fracture found on XRs in the ER. No known osteoporosis but lso no recent DEXA scans. 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 Doing well since then - no shortness of breath or chest pain on walking. Compliant with medications and just saw her tile layer helper in July. Very active walks up and down stairs without symptoms. No history of heart failure. 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 She last took her Eliquis this morning around 9am. Patient seen and examined in the ER. Denies numbness and tingling down her left leg. No prior history of hip problems. Keith not use an ambulatory assist at baseline. Allergies Allergy/AdvReac Type Severity Reaction Status Date / Time No Known Allergies Allergy Verified 09/21/22 12:04 Home Medications Medication Instructions Recorded Confirmed Type aspirin 81 mg tablet,delayed 81 mg PO DAILY #90 tabs 10/31/18 10/03/22 Rx release (Adult Low Dose Aspirin) calcium phosphate 600 mg-vit D3 1 tab PO BID #180 tabs 10/31/18 10/03/22 Rx 500 unit-magnesium oxide 50 mg tablet (Posture-D (with magnesium)) multivit with min-folic 1 tab PO DAILY #30 tabs 10/31/18 10/03/22 Rx acid-lutein 400 mcg-250 mcg chewable tablet (Centrum Silver) amoxicillin 500 mg tablet 2,000 mg PO .COMPLEX #4 tabs 11/28/20 10/03/22 Rx prochlorperazine maleate 10 mg 10 mg PO Q6H PRN nausea/vomiting 06/09/21 10/03/22 History tablet (Compazine) diltiazem HCl 360 mg 360 mg PO DAILY #90 caps 11/25/21 10/03/22 Rx capsule,extended release 24 hr simvastatin 20 mg tablet 20 mg PO QPM #90 tabs 02/02/22 10/03/22 Rx apixaban 2.5 mg tablet (Eliquis) 2.5 mg PO BID #180 tabs 02/23/22 10/03/22 Rx metoprolol succinate 25 mg 75 mg PO DAILY #270 tabs 08/07/22 10/03/22 Rx tablet,extended release 24 hr vitamins A,C,X-mwkw-epbpta 2,148 1 tab PO BID 09/21/22 10/03/22 History mcg-113 mg-45 mg-17.4 mg tablet (PreserVision AREDS) acetaminophen 500 mg tablet 1,000 mg PO Q8 #60 tabs 10/07/22 Rx (Tylenol Extra Strength) docusate sodium 100 mg capsule 100 mg PO BID #60 caps 10/07/22 Rx Patient History Medical History Atrial fibrillation Atrial flutter, paroxysmal Bilateral hearing loss CAD (coronary artery disease) Colon polyps Diverticulosis Hyperlipidemia Mitral valve disorder Need for SBE (subacute bacterial endocarditis) prophylaxis SSS (sick sinus syndrome) Surgical History Cardiac pacemaker in situ H/O colonoscopy H/O mitral valve replacement S/P tonsillectomy S/P tubal ligation Family History Sister Alzheimer disease Father Heart disease Social History Smoking Status: Never smoker Second Hand Exposure: No; Do You Dip or Chew Tobacco: No; Hx Alcohol Use: No Hx Substance Use: No Preferred Language: Arabic Communication Ability: Effective Chassis Wirer Required: No Beliefs That Will Affect Care: None marital status: Current Living Situation: Spouse current occupational status: retired Feels Safe at Home: Yes Assistive Devices: None Physical Exam Physical Exam: A & O x 3 in NAD L leg shortened, ER, NVI. Skin intact. (1) Closed fracture of left hip Encounter type: initial encounter Qualified Code(s): S72.002A - Fracture of unspecified part of neck of left femur, initial encounter for closed fracture (2) Atrial fibrillation Atrial fibrillation type: paroxysmal Qualified Code(s): I48.0 - Paroxysmal atrial fibrillation
== END 2022-10-07 12:39 | DRG 522 ==
LOC: ED 15:17 → 3W 18:15 → SUATTDRO 18:15 → 3W 20:16